=== PATIENT | male | born 1980 | race Two or more races ===

== ENCOUNTER 2020-08-05 10:30 | Outpatient (REF) | payer OTHER, SELFPAY ==
[2020-08-05 11:10] LABS: MANUAL DIFF FLAG NO
[2020-08-05 11:38] LABS: Basophils Percent Auto 0.5 % (0-2); Eosinophils Absolute Auto 0.1 X10*3/uL (0.0-0.4); Eosinophils Percent Auto 1.7 % (0-4); Hematocrit 44.1 % (42-52); Hemoglobin 14.5 g/dl (14.0-18.0); Imm Gran Abs Auto 0.05 X10*3/uL (0.00-0.03); Imm Gran Pct Auto 0.8 % (0.0-0.4); Lymphocytes Absolute Auto 1.8 X10*3/uL (1.2-4.9); Lymphocytes Percent Auto 26.8 % (20-40); Mean Corpuscular HGB Conc 32.9 g/dl (31.0-36.0); Mean Corpuscular Hemoglobin 28.8 pg (27.0-33.0); Mean Corpuscular Volume 87.7 fL (80-98); Monocytes Absolute Auto 0.4 X10*3/uL (0.1-1.2); Monocytes Percent Auto 6.5 % (2-11); Neutrophils Absolute Auto 4.2 X10*3/uL (2.0-8.3); Neutrophils Percent Auto 63.7 % (45-73); Platelet Count 159 X10*3/uL (160-400); Red Blood Count 5.03 X10*6/uL (4.60-5.80); Red Cell Distribution Width 13.3 % (11.0-16.0); White Blood Count 6.6 X10*3/uL (4.8-10.8)
[2020-08-05 11:45] LABS: Glucose Urine UA NEG (NEG); Leukocyte Esterase Urine NEG (NEG); Nitrite Urine NEG (NEG); Specific Gravity - Urine 1.025 (1.005-1.025); Urine Blood NEG (NEG); Urine Ketones NEG (NEG); Urine Protein NEG (NEG-TRACE)
[2020-08-05 11:47] LABS: Appearance Urine CLEAR; Color Urine YELLOW
[2020-08-05 12:16] LABS: TSH reflex Free T4 1.21 uIU/mL (0.32-4.0)
[2020-08-05 12:17] LABS: Alanine Aminotransferase 36 U/L (0-40); Albumin Level 4.7 g/dL (3.5-5.0); Alkaline Phosphatase 40 U/L (39-117); Anion Gap 12 (12-20); Aspartate Amino Transferase 23 U/L (5-37); Bilirubin Total < 0.2 mg/dL (0.0-1.0); Blood Urea Nitrogen 19 mg/dL (9-16); Calcium 9.5 mg/dL (8.4-10.2); Carbon Dioxide 28 mmol/L (22-29); Chloride 104 mmol/L (96-108); Cholesterol 231 mg/dL; Estimated Glomerular Filt Rate > 60; Glucose Fasting 90 mg/dL (60-99); HDL Cholesterol 61 mg/dL; LDL Cholesterol Calculated 153 mg/dl; Potassium 4.7 mmol/L (3.3-5.1); Sodium 139 mmol/L (135-145); Total Protein 7.5 g/dL (6.5-8.0); Triglycerides 85 mg/dL
== END 2020-08-05 10:31 | disposition home or self-care (01) ==
LOC: HO.LAB 10:30
PROVIDERS: PCP Internal Medicine; Visit Provider Internal Medicine
DX: E66.9 Obesity, unspecified (principal); F17.200 Nicotine dependence, unspecified, uncomplicated; Z00.00 Encounter for general adult medical examination without abnormal findings
CPT/HCPCS: 36415; 80053; 80061; 81003; 84443; 85025

== ENCOUNTER 2021-01-10 10:04 | Emergency (ER) | payer OTHER, SELFPAY ==
[2021-01-10 12:13] VITALS: BP 118/79; PULSE 68; RESP 18; TEMP 36.4; O2SAT 99; BMI 33.9
[2021-01-10] MEDS: Lidocaine HCl 1 % MPF 5 ML VIAL SUBCUT (12:30)
--- NOTE | 2021-01-10 13:29 | ED.SKABFB ---
HPI - Skin/Abscess/Foreign Bdy General Chief complaint: Skin/Abscess/Foreign Body Stated complaint: lump on face Time Seen by Provider: 01/10/21 12:16 Source: patient Mode of arrival: ambulatory History of Present Illness HPI narrative: 40-year-old male presenting to the ED complaining of painful lump to left jaw line x6 days. Reports chronic intermittent cyst to area however has never enlarged to this degree. Denies drainage from area, fever, chills complaint: abscess/boil Related Data Home Medications Medication Instructions Recorded Confirmed ibuprofen 600 mg tablet 600 mg PO Q8H PRN 03/15/20 08/25/20 Previous Rx's Medication Instructions Recorded escitalopram oxalate 20 mg tablet 20 mg PO DAILY #30 tab 10/19/20 hydroxyzine pamoate 25 mg capsule 25 mg PO BID PRN #60 cap 10/19/20 trazodone 100 mg tablet 100 mg PO BEDTIME PRN #30 tab 10/19/20 cephalexin 500 mg capsule 500 mg PO QID 7 Days #28 cap 01/10/21 doxycycline hyclate 100 mg tablet 100 mg PO BID 7 Days #14 tab 01/10/21 Allergies Allergy/AdvReac Type Severity Reaction Status Date / Time No Known Allergies Allergy Verified 08/25/20 11:59 [No Known Allergies*] Review of Systems Review of Systems: Constitutional: No Fever, No Chills ENT/Mouth: No Ear Pain, No sore throat, No Swallowing Difficulty Cardiovascular: No Chest Pain, No SOB Respiratory: No Cough Gastrointestinal: No Nausea, No Vomiting, No Abdominal pain Genitourinary: No Dysuria Musculoskeletal: No joint pain, No Myalgias, No Joint Swelling Skin: + Skin Lesions, No rash Neuro: No Weakness, No Numbness, No Paresthesias Yes all other systems are reviewed and are negative [facility] Past Medical History Attestation statement: The following information was validated with the patient. Medical History Anxiety History of substance abuse Insomnia Left shoulder pain Obesity (BMI 30-39.9) Pure hypercholesterolemia Smoker Surgical History No pertinent past surgical history Family History Family History Father No problems noted. Mother No problems noted. Social History Social History Alcohol intake: never Cigarette Packs Per Day: 1 Advance Directives: No Physical Exam Vital Signs: Vital Signs: Last Vital Signs Temp 97.6 F 01/10/21 12:13 Pulse 68 01/10/21 12:13 Resp 18 01/10/21 12:13 BP 118/79 01/10/21 12:13 Pulse Ox 99 01/10/21 12:13 Body Mass Index 33.9 Const: General: cooperative and healthy appearing Orientation/consciousness: patient oriented x3 Limitations: no limitations HENMT: Other: No intraoral swelling/fluctuance appreciated Head: Yes normal to inspection Ears: hearing grossly normal bilaterally General nose exam: Normal external nose present Face and sinus: Yes normal facial exam Mouth: Normal oral and palatal mucosa present and no drooling Throat: Yes posterior oropharynx normal, Yes tonsils normal, Yes uvula midline, No peritonsillar mass and No uvular edema Eyes: General: appearance normal, both eyes and all related structures EOM: EOMs intact bilaterally Neck: Other: + fluctuant abscess noted to left jawline. Pointing. No induration. No overlying cellulitis. No streaking Neck: Yes normal visual inspection and Yes no lymphadenopathy Resp: Effort & Inspection: normal respiratory effort, no stridor and not tachypneic Cardio: Rate: regular rate Heart sounds: S1 normal heart sound present and S2 normal heart sound present Skin: Rashes: no rashes Wounds: no wounds Neuro: General: patient oriented x3 Gait exam (Neuro): Normal gait present Extrem: General: Yes normal to inspection MDM - Skin/Abscess/Foreign Bdy MDM Narrative Medical decision making narrative: 40-year-old male presenting to the ED complaining of painful lump to left jaw line x6 days. Reports chronic intermittent cyst to area however has never enlarged to this degree. On exam VSS, NAD, will I & D abscess Procedures Abscess I/D Site: face Side (if applicable): left Local Anesthetic: lidocaine 1% Amount of anesthesia used (mL): 5 Technique: incised with blade Sent for culture/gram staining?: No Packing used?: none Discharge Plan Discharge Clinical Impression: Abscess Patient Disposition: Home, Self-Care Instructions: Abscess (ED), Abscess Follow-up (ED) Additional Instructions: You had an abscess that was drained today in the emergency department flex and doxycycline or antibiotics, bleed take as prescribed Avoid the sun while on doxycycline and makes you sensitive to the sun, and prone to sunburn If area begins to look infected, is red, has pus drainage, you have fever please return to the ED It is normal for the area to have bloody drainage from the next 48 hours Please follow-up with her doctor in the next 3-5 days for re-evaluation Prescriptions: New cephalexin 500 mg capsule 500 mg PO QID 7 Days Qty: 28 RF: 0 doxycycline hyclate 100 mg tablet 100 mg PO BID 7 Days Qty: 14 RF: 0 No Action trazodone 100 mg tablet 100 mg PO BEDTIME PRN (Reason: for insomnia) Qty: 30 RF: 2 escitalopram oxalate 20 mg tablet 20 mg PO DAILY Qty: 30 RF: 2 hydroxyzine pamoate 25 mg capsule 25 mg PO BID PRN (Reason: for anxiety) Qty: 60 RF: 1 ibuprofen 600 mg tablet 600 mg PO Q8H PRNRF: 0 Referrals: Chema Alexander MD [Primary Care Provider] - 3 days Interventions: ED Discharge Assessment Last Done: 01/10/21 13:41 Discharge Date/Time: 01/10/21 13:42
== END 2021-01-10 13:42 | disposition home or self-care (01) ==
PROVIDERS: Emergency Provider Emergency Medicine; PCP Internal Medicine
DX: L02.01 Cutaneous abscess of face (principal); F17.210 Nicotine dependence, cigarettes, uncomplicated
CPT/HCPCS: 10060; 99283; 99284

== ENCOUNTER 2022-05-04 14:10 | Outpatient (REF) | payer OTHER, SELFPAY ==
[2022-05-04 14:27] LABS: MANUAL DIFF FLAG NO
[2022-05-04 15:00] LABS: Basophils Percent Auto 0.4 % (0-2); Eosinophils Absolute Auto 0.1 X10*3/uL (0.0-0.4); Eosinophils Percent Auto 1.4 % (0-4); Imm Gran Abs Auto 0.05 X10*3/uL (0.00-0.03); Imm Gran Pct Auto 0.7 % (0.0-0.4); Lymphocytes Absolute Auto 1.8 X10*3/uL (1.2-4.9); Lymphocytes Percent Auto 24.4 % (20-40); Mean Corpuscular HGB Conc 34.9 g/dl (31.0-36.0); Mean Corpuscular Hemoglobin 29.8 pg (27.0-33.0); Mean Corpuscular Volume 85.5 fL (80.0-98.0); Mean Platelet Volume 10.6 fL (9.4-12.4); Monocytes Absolute Auto 0.4 X10*3/uL (0.1-1.2); Monocytes Percent Auto 5.2 % (2-11); Neutrophils Percent Auto 67.9 % (45-73); Platelet Count 205 X10*3/uL (160-400); Red Blood Count 5.03 X10*6/uL (4.60-5.80); Red Cell Distribution Width 13.3 % (11.0-16.0); White Blood Count 7.3 X10*3/uL (4.8-10.8)
[2022-05-04 15:02] LABS: Appearance Urine Clear; Color Urine Dark Yellow; Glucose Urine UA Negative (Negative); Leukocyte Esterase Urine Negative (Negative); Nitrite Urine Negative (Negative); Specific Gravity - Urine 1.025 (1.005-1.025); UMIC TRIGGER UACC YES; Urine Blood Negative (Negative); Urine Ketones Trace mg/dL (Negative); Urine Protein 30 (1+) mg/dL (Neg-Trace)
[2022-05-04 15:08] LABS: Bacteria Urine None Seen (None Seen); RBC Urine 0-2 /HPF (0-2); Squamous Epithelial Cell Urine 0-2 /HPF (0-2); WBC Urine 0-5 /HPF (0-5)
[2022-05-04 15:37] LABS: Alanine Aminotransferase 28 U/L (0-40); Albumin Level 4.4 g/dL (3.5-5.0); Alkaline Phosphatase 64 U/L (39-117); Anion Gap 13 (12-20); Aspartate Amino Transferase 31 U/L (5-37); Bilirubin Total 1.2 mg/dL (0.0-1.0); Blood Urea Nitrogen 12 mg/dL (9-16); Calcium 9.7 mg/dL (8.4-10.2); Carbon Dioxide 25 mmol/L (22-29); Chloride 106 mmol/L (96-108); Cholesterol 231 mg/dL; Estimated Glomerular Filt Rate > 60; Glucose Fasting 96 mg/dL (60-99); HDL Cholesterol 58 mg/dL; LDL Cholesterol Calculated 133 mg/dl; Potassium 4.2 mmol/L (3.3-5.1); Sodium 140 mmol/L (135-145); Total Protein 7.6 g/dL (6.5-8.0); Triglycerides 203 mg/dL
[2022-05-04 15:44] LABS: Digoxin < 0.2 ng/mL (0.8-2.0)
[2022-05-04 15:54] LABS: TSH reflex Free T4 1.95 uIU/mL (0.32-4.0); Vitamin D 25-OH Total 14.4 ng/mL (>30)
[2022-05-04 16:05] LABS: Vitamin B12 1056 pg/mL (200-900)
[2022-05-04 18:37] LABS: B Type Natriuretic Peptide 181 pg/mL (<100)
== END 2022-05-04 14:11 | disposition home or self-care (01) ==
LOC: HO.LAB 14:10
PROVIDERS: PCP Internal Medicine; Visit Provider Internal Medicine
DX: I11.0 Hypertensive heart disease with heart failure (principal); I50.20 Unspecified systolic (congestive) heart failure; E53.8 Deficiency of other specified B group vitamins; E78.00 Pure hypercholesterolemia, unspecified; E55.9 Vitamin D deficiency, unspecified
CPT/HCPCS: 36415; 80053; 80061; 80162; 81001; 81003; 82306; 82607; 82746; 83880; 84443; 85025

== ENCOUNTER 2022-06-20 12:52 | Outpatient (REF) | payer OTHER, SELFPAY ==
[2022-06-20 13:34] LABS: Appearance Urine Clear; Color Urine Yellow; Glucose Urine UA Negative (Negative); Leukocyte Esterase Urine Negative (Negative); Nitrite Urine Negative (Negative); Urine Blood Negative (Negative); Urine Ketones Negative (Negative); Urine Protein Trace mg/dL (Neg-Trace)
== END 2022-06-20 12:53 | disposition home or self-care (01) ==
LOC: HO.LAB 12:52
PROVIDERS: PCP Internal Medicine; Visit Provider Physician Assistant
DX: R30.0 Dysuria (principal); I48.91 Unspecified atrial fibrillation
CPT/HCPCS: 81003

== ENCOUNTER 2022-12-03 17:18 | Outpatient (AMB) | payer OTHER, SELFPAY ==
[2022-12-03 17:19] VITALS: BP 124/80; PULSE 69; O2SAT 97; BMI 35.6
--- NOTE | 2022-12-03 17:19 | MHC.PC.OV ---
Vital Signs 12/03/22 17:19 Height 5 ft 6 in Weight 220 lb 6 oz BMI 35.6 BP 124/80 Blood Pressure Location Lt brachial Position Sitting Pulse 69 Pulse Source Pulse Oximeter Pulse Oximetry (%) 97 Oxygen Delivery Method Room Air Intake Visit Reasons: disability Vp Software Required: No Accompanied by: Self / Same As Patient Allergies No Known Allergies [No Known Allergies*] Allergy (Verified 12/03/22 18:16) Medication List - Last Reconciled 12/03/22 by Chema Alexander MD apixaban (Eliquis) 5 mg PO BID 30 days digoxin 125 mcg PO DAILY 90 days folic acid 1 mg PO DAILY 90 days hydroxyzine pamoate 25 mg PO BID PRN metoprolol tartrate 12.5 mg (1/2 x 25 mg) PO BID 90 days nicotine 1 patch topical DAILY Tobacco use date assessed: 12/03/22 Dental Screening Dental Screen Date: 12/03/22 Did you have a dental visit in the last 12 months?: No Did you have a dental problem in the last 6 months where you did not have access to dental care?: No Was dental information given to patient?: No HPI disability HPI Details Patient comes in today mainly to get help in getting his Medical Source Statement completed so he can continue to receive disability benefits from social security States that he has been out of work since he was diagnosed with heart disease / cardiomyopathy back in January 2022 Relates that he is still experiencing easy fatigability and increased SOB even with minimal exertion due to his heart condition Has also been experiencing increased anxiety for the past several months and that he gets near panic attack at times - is wondering if he is on any Rx that helps with his anxiety at present He denies any headaches or dizziness Denies any chest pains although he does experience some chest pressure with increased exertion at times and in association with his exertional SOB No nausea/vomiting, no abdominal pain No change in bowel habits noted Patient unfortunately continues to drink alcohol often as he has a strong smell of alcohol (beer) on his at this time and he admits that he drinks at times to help with his anxiety [facility] Medical History Alcoholic cardiomyopathy Anxiety Atrial fibrillation History of substance abuse Insomnia Left shoulder pain Obesity (BMI 30-39.9) Overweight (BMI 25.0-29.9) Pure hypercholesterolemia Smoker Thrombus of left atrial appendage Surgical History No pertinent past surgical history Family History Father No problems noted. Mother No problems noted. Social History Housing: Condominium Alcohol intake: current Alcohol intake frequency: a few times a week Patient Tobacco Use Status: Current everyday Tobacco user Cigarettes Per Day: 5 e-Cigarette/Vaping Use: Never Used Second Hand Smoke Exposure: Yes Current occupational status: employed Cognitive needs: No Hearing needs: No Vision needs: No Questionnaire PHQ-9 Over the last 2 weeks, how often have you been bothered by any of the following problems? 1. Little interest or pleasure in doing things: nearly every day 2. Feeling down, depressed, or hopeless: nearly every day 3. Trouble falling or staying asleep, or sleeping too much: several days 4. Feeling tired or having little energy: nearly every day 5. Poor appetite or overeating: several days 6. Feeling bad about yourself - or that you are a failure or have let yourself or your family down: nearly every day 7. Trouble concentrating on things, such as reading the newspaper or watching television: not at all 8. Moving or speaking so slowly that other people could have noticed. Or the opposite - being so fidgety or restless that you have been moving around a lot more than usual: several days 9. Thoughts that you would be better off or of hurting yourself in some way: not at all Total score: 15 Depression Screening Interpretation: Positive Depression Screening Follow-up: Existing condition, Community Mental Health Worker F/U and Follow-up Visit Requested [id number] - PHQ-9 Billing: Yes Source: Developed by Drs. Tenzin Noel, Mary Kay, Jomar Esposito and colleagues, with an educational yared from [employer]. Thrive Questionnaire Date Thrive assessed: 12/03/22 I am a: Patient What is your living situation today?: I have a steady place to live Within the past 12 months, did the food you bought not last and you didn't have the money to get more?: Never true Within the past 12 months, did you worry whether your food would run out before you got money to buy more?: Never true Do you have trouble paying for medicines?: No Do you have trouble getting transportation to medical appointments?: No Do you have trouble paying your heating and electricity bill?: No Do you have trouble taking care of your child, family member or friend?: No Do you have trouble with day-to-day activities such as bathing, preparing meals, shopping, managing finances, etc.?: No Are you currently unemployed and looking for a job?: No Are you interested in more education?: No Currently or been in a relationship where the following occur: no concerns reported AUDIT C Alcohol Use Questionnaire (AUDIT-C) 1. How often do you have a drink containing alcohol?: Monthly or less 2. How many drinks containing alcohol do you have on a typical day when you are drinking?: 1 or 2 3. How often do you have six or more drinks on one occasion?: Never Total Score: 1 Score Reviewed/Action Taken: Yes CALLIE-7 AMB Questionnaire CALLIE-7 Date CALLIE - 7 assessed: 12/03/22 Feeling nervous, anxious, or on edge: 0 = Not at all Not being able to stop or control worryin = Not at all Worrying too much about different things: 0 = Not at all Trouble relaxin = Not at all Being so restless that it is hard to sit still: 0 = Not at all Becoming easily annoyed or irritable: 0 = Not at all Feeling afraid as if something awful might happen: 0 = Not at all Total CALLIE-7 score (0-4 normal; 5-9 mild; 10-14 moderate; 15-21 severe): 0 Source: Developed by Drs. Tenzin Noel, Mary Kay, Jomar Esposito and colleagues, with an educational yared from [employer]. Review of Systems Const Reports difficulty sleeping, Reports fatigue, Denies fever(s), Denies headache(s) and Reports lethargy ENT Denies dysphagia, Denies dizziness, Denies headache(s) and Denies sore throat Card Denies chest pain (but relates (+) chest pressure with activity at times), Denies palpitations and Reports dyspnea on exertion Resp Denies cough, Reports dyspnea on exertion and Denies wheezing GI Denies abdominal pain, Denies constipation, Denies dysphagia, Denies heartburn, Denies diarrhea, Denies nausea and Denies vomiting Denies dysuria, Denies nocturia and Denies urinary frequency Musc Reports back pain (on and off), Denies myalgias and Reports muscle weakness (overall) Neuro Denies dizziness and Denies headache(s) Psych Reports anxiety (increased), Reports panic attacks and Denies suicidal ideation Endo Reports fatigue and Denies palpitations Aller/Immun Denies wheezing Physical exam (Primary Care) Vital Signs: Last Vital Signs Pulse 69 12/03/22 17:19 BP 124/80 12/03/22 17:19 Pulse Ox 97 12/03/22 17:19 Oxygen Delivery Method Room Air 12/03/22 17:19 BMI result Body Mass Index 35.6 Tobacco/Smoking Status: Tobacco use Status Tobacco use date assessed 12/03/22 12/03/22 17:28 Patient Tobacco Use Status Current everyday Tobacco 12/03/22 17:28 e-Cigarette/Vaping Use Never Used 12/03/22 17:28 PHQ-9: PHQ-9 Score PHQ-9: Total score 15 12/03/22 17:28 Depression Screening Interpretation: Positive Depression Screening Follow-up: Existing condition, Community Mental Health Worker F/U and Follow-up Visit Requested Thrive Assessment: Date of Thrive Assessment Date Thrive assessed 12/03/22 12/03/22 17:28 Currently or been in a relationship where the following occur: no concerns reported Const General: no acute distress and alert HENMT Throat: Yes posterior oropharynx normal and Yes tonsils normal (no TP congestion) Neck Neck: Yes no lymphadenopathy and Yes supple Resp Auscultation: clear to auscultation bilaterally, no rales and no wheezes Cardio Rate: regular rate Rhythm: abnormal rhythm irregularly irregular Heart sounds: no murmurs GI Palpation (GI): Soft to palpation and nontender Extrem General: No clubbing, No cyanosis and Yes pedal edema (1+ bilateral) Assessment and Plan Assessment & Plan (1) Alcoholic cardiomyopathy: Code(s): I42.6 - Alcoholic cardiomyopathy Plan: Echocardiogram done last year (2021) revealed (+) severe cardiomyopathy with EF of 15-25% Continue Digoxin 0.125 mg QD Continue Thiamine 100 mg QD and Pyridoxine 50 mg QD Will likely need stress testing once his acute issues are stabilized Patient unfortunately continues to drink as he smells strongly of alcohol during his visit today - admitted to drinking before coming in for his appointment Is advised that alcohol is what brought on his cardiomyopathy in the first place and he really should NOT be drinking any alcohol anymore at this time Offered to refer him to AA or addiction counseling but he declined His Medical Source Statement is filled out and completed during his visit today and they will be fax[facility] to [facility] at as requested to help him continue to receive disability benefits from social security at this time (2) Atrial fibrillation: Code(s): I48.91 - Unspecified atrial fibrillation Qualifiers: Atrial fibrillation type: persistent (not longstanding) Qualified Code(s): I48.19 - Other persistent atrial fibrillation Plan: Patient currently remains rate-controlled Continue Digoxin 125 mcg QD and Metoprolol 12.5 mg BID for rate control and Eliquis 5 mg BID for thromboembolism prophylaxis Was originally scheduled for cardioversion but MONIQUE revealed the presence of a left atrial appendage thrombus so cardioversion was canceled He eventually underwent MONIQUE with cardioversion in June 2022 but apparently failed cardioversion as he remained in AF when he was seen by cardiology for follow up in July 2022 He was referred for EP studies and consideration for ablation and advised to follow up with cardiology again in 4 weeks but it is unclear at this time whether patient followed through with any of these recommendations as we have not received any further correspondence from cardiology since Patient is a very poor historian and us unable to provide any helpful or reliable information at this time Will try to contact [facility] and see if we can get any further information sent over [facility] for review (3) Thrombus of left atrial appendage: Code(s): I51.3 - Intracardiac thrombosis, not elsewhere classified Plan: MONIQUE done last year revealed the presence of a left atrial appendage thrombus, which led to the cancellation of his scheduled cardioversion Patient eventually underwent repeat MONIQUE and cardioversion in July 2022 and appears to have failed cardioversion Follow-up with cardiology as scheduled (4) Pure hypercholesterolemia: Code(s): E78.00 - Pure hypercholesterolemia, unspecified Plan: Reinforced low cholesterol diet Advised that given his current issues, will benefit from significant cholesterol-reduction - his LDL cholesterol was at 133 back in April 2022 Had patient recheck his labs and fasting lipids for follow up a few months ago but he did not get any of his follow up labs done Have also considered starting him right away on statins but with his continuing drinking issue(s), may not be the best thing to do at this time until he has some labs done for further evaluation/follow up (5) Anxiety: Code(s): F41.9 - Anxiety disorder, unspecified Plan: Continue Hydroxyzine 25 mg BID PRN for anxiety - Rx refilled Will consider starting him on some maintenance Rx for his anxiety when he returns for his follow up visit in a couple of weeks (6) Smoker: Code(s): F17.200 - Nicotine dependence, unspecified, uncomplicated Plan: Counseled again to continue attempts at smokng cessation (7) Obesity (BMI 30-39.9): Code(s): E66.9 - Obesity, unspecified Plan: Patient has gained a lot of weight recently Reinforced diet/weight loss; exercise is unrealistic at this time given patient's current comorbidities Plan Follow up as scheduled in 2 weeks Medications: Refilled hydroxyzine pamoate 25 mg PO BID PRN 60 caps 3RF for anxiety F41.9 - Anxiety disorder, unspecified Coding Level of Care Code Est Pt Level 4 (66853) Diagnoses Alcoholic cardiomyopathy I42.6 Atrial fibrillation I48.19 Atrial fibrillation type: persistent (not longstanding) Thrombus of left atrial appendage I51.3 Pure hypercholesterolemia E78.00 Anxiety F41.9 Smoker F17.200 Obesity (BMI 30-39.9) E66.9
== END 2022-12-03 18:08 | disposition home or self-care (01) ==
PROVIDERS: PCP Internal Medicine; Visit Provider Internal Medicine
DX: I48.19 Other persistent atrial fibrillation (principal); I42.6 Alcoholic cardiomyopathy; F41.9 Anxiety disorder, unspecified; F17.200 Nicotine dependence, unspecified, uncomplicated; I51.3 Intracardiac thrombosis, not elsewhere classified; E78.00 Pure hypercholesterolemia, unspecified; E66.9 Obesity, unspecified
CPT/HCPCS: 99214

== ENCOUNTER 2022-12-11 13:17 | Outpatient (REF) | payer OTHER, SELFPAY ==
[2022-12-11 13:38] LABS: MANUAL DIFF FLAG NO
[2022-12-11 14:15] LABS: Basophils Absolute Auto 0.1 X10*3/uL (0.0-0.2); Basophils Percent Auto 0.7 % (0-2); Eosinophils Absolute Auto 0.1 X10*3/uL (0.0-0.4); Eosinophils Percent Auto 1.5 % (0-4); Hematocrit 49.6 % (42.0-52.0); Hemoglobin 16.6 g/dl (14.0-18.0); Imm Gran Abs Auto 0.05 X10*3/uL (0.00-0.03); Imm Gran Pct Auto 0.6 % (0.0-0.4); Lymphocytes Absolute Auto 1.7 X10*3/uL (1.2-4.9); Lymphocytes Percent Auto 20.4 % (20-40); Mean Corpuscular HGB Conc 33.5 g/dl (31.0-36.0); Mean Corpuscular Hemoglobin 30.5 pg (27.0-33.0); Mean Corpuscular Volume 91.2 fL (80.0-98.0); Mean Platelet Volume 10.7 fL (9.4-12.4); Monocytes Absolute Auto 0.7 X10*3/uL (0.1-1.2); Monocytes Percent Auto 8.1 % (2-11); Neutrophils Absolute Auto 5.8 x10*3/uL (2.0-8.3); Neutrophils Percent Auto 68.7 % (45-73); Platelet Count 154 X10*3/uL (160-400); Red Blood Count 5.44 X10*6/uL (4.60-5.80); Red Cell Distribution Width 13.2 % (11.0-16.0); White Blood Count 8.4 X10*3/uL (4.8-10.8)
[2022-12-11 15:10] LABS: B Type Natriuretic Peptide 90 pg/mL (<100)
[2022-12-11 15:21] LABS: Appearance Urine Clear; Color Urine Dark Yellow; Glucose Urine UA Negative (Negative); Leukocyte Esterase Urine Small (1+) (Negative); Nitrite Urine Negative (Negative); UMIC TRIGGER UACC YES; Urine Blood Negative (Negative); Urine Ketones Trace mg/dL (Negative); Urine Protein 30 (1+) mg/dL (Neg-Trace)
[2022-12-11 15:55] LABS: Alanine Aminotransferase 96 U/L (0-40); Albumin Level 4.6 g/dL (3.5-5.0); Alkaline Phosphatase 60 U/L (39-117); Anion Gap 17 (12-20); Aspartate Amino Transferase 79 U/L (5-37); Blood Urea Nitrogen 8 mg/dL (9-16); Calcium 9.9 mg/dL (8.4-10.2); Carbon Dioxide 16 mmol/L (22-29); Chloride 110 mmol/L (96-108); Cholesterol 283 mg/dL; Estimated Glomerular Filt Rate > 60; Glucose Fasting 91 mg/dL (60-99); HDL Cholesterol 69 mg/dL; LDL Cholesterol Calculated 177 mg/dl; Potassium 4.3 mmol/L (3.3-5.1); Sodium 139 mmol/L (135-145); Total Protein 8.7 g/dL (6.5-8.0); Triglycerides 187 mg/dL
[2022-12-11 16:21] LABS: TSH reflex Free T4 1.07 uIU/mL (0.32-4.0); Vitamin D 25-OH Total 29.9 ng/mL (>30)
[2022-12-11 17:07] LABS: Bacteria Urine None Seen (None Seen); RBC Urine 0-2 /HPF (0-2); Squamous Epithelial Cell Urine 0-2 /HPF (0-2); UACC Culture Trigger YES; WBC Urine 0-5 /HPF (0-5)
== END 2022-12-11 13:18 | disposition home or self-care (01) ==
LOC: HO.LAB 13:17
PROVIDERS: PCP Internal Medicine; Visit Provider Internal Medicine
DX: E78.00 Pure hypercholesterolemia, unspecified (principal); R30.0 Dysuria; E55.9 Vitamin D deficiency, unspecified; I11.0 Hypertensive heart disease with heart failure; I50.9 Heart failure, unspecified
CPT/HCPCS: 36415; 80053; 80061; 81001; 82306; 83880; 84443; 85025; 87086

== ENCOUNTER 2022-12-17 16:04 | Outpatient (AMB) | payer OTHER, SELFPAY ==
[2022-12-17 16:05] VITALS: BP 116/84; PULSE 76; O2SAT 96; BMI 35.7
--- NOTE | 2022-12-17 16:05 | A.OFFPC_ITS ---
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 Required: No Accompanied by: Self / Same As Patient Allergies No Known Allergies [No Known Allergies*] Allergy (Verified 12/17/22 16:54) Medication List - Last Reconciled 12/17/22 by Chema Alexander MD apixaban (Eliquis) 5 mg PO BID 30 days digoxin 125 mcg PO DAILY 90 days folic acid 1 mg PO DAILY 90 days hydroxyzine pamoate 25 mg PO BID PRN metoprolol tartrate 12.5 mg (1/2 x 25 mg) PO BID 90 days nicotine 1 patch topical DAILY Tobacco use date assessed: 12/17/22 Dental Screening Dental Screen Date: 12/17/22 Did you have a dental visit in the last 12 months?: No Did you have a dental problem in the last 6 months where you did not have access to dental care?: No Was dental information given to patient?: No HPI cardiomyopathy HPI Details Patient comes in today for his follow up visit States that he still feels tired and fatigued often and is not able to do much in terms of activity Continues to experience POOLE often; denies any chest pains lately States that he was just seen by his customer service cashier and had some type of stress testing done about a month and a half ago - he does not know the results of his test He denies any headaches or dizziness No nausea/vomiting, no abdominal pain No change in bowel habits noted Had his follow up labs done last week - to discuss his results [facility] Medical History Alcoholic cardiomyopathy Anxiety Atrial fibrillation History of substance abuse Insomnia Left shoulder pain Obesity (BMI 30-39.9) Overweight (BMI 25.0-29.9) Pure hypercholesterolemia Smoker Thrombus of left atrial appendage Surgical History No pertinent past surgical history Family History Father No problems noted. Mother No problems noted. Social History Housing: Condominium Alcohol intake: current Alcohol intake frequency: a few times a week Patient Tobacco Use Status: Current everyday Tobacco user Cigarettes Per Day: 5 e-Cigarette/Vaping Use: Never Used Second Hand Smoke Exposure: Yes Current occupational status: employed Cognitive needs: No Hearing needs: No Vision needs: No Questionnaire PHQ-9 Over the last 2 weeks, how often have you been bothered by any of the following problems? 1. Little interest or pleasure in doing things: nearly every day 2. Feeling down, depressed, or hopeless: nearly every day 3. Trouble falling or staying asleep, or sleeping too much: several days 4. Feeling tired or having little energy: nearly every day 5. Poor appetite or overeating: several days 6. Feeling bad about yourself - or that you are a failure or have let yourself or your family down: nearly every day 7. Trouble concentrating on things, such as reading the newspaper or watching television: not at all 8. Moving or speaking so slowly that other people could have noticed. Or the opposite - being so fidgety or restless that you have been moving around a lot more than usual: several days 9. Thoughts that you would be better off or of hurting yourself in some way: not at all Total score: 15 Depression Screening Interpretation: Positive Depression Screening Follow-up: Existing condition, Community Mental Health Worker F/U and Follow-up Visit Requested [id number] - PHQ-9 Billing: Yes Source: Developed by Drs. Tenzin Noel, Mary Kay, oJmar Esposito and colleagues, with an educational yared from [employer]. Thrive Questionnaire Date Thrive assessed: 12/17/22 I am a: Patient What is your living situation today?: I have a steady place to live Within the past 12 months, did the food you bought not last and you didn't have the money to get more?: Never true Within the past 12 months, did you worry whether your food would run out before you got money to buy more?: Never true Do you have trouble paying for medicines?: No Do you have trouble getting transportation to medical appointments?: No Do you have trouble paying your heating and electricity bill?: No Do you have trouble taking care of your child, family member or friend?: No Do you have trouble with day-to-day activities such as bathing, preparing meals, shopping, managing finances, etc.?: No Are you currently unemployed and looking for a job?: No Are you interested in more education?: No Please select the resources that you would like help with: None Currently or been in a relationship where the following occur: no concerns reported AUDIT C Alcohol Use Questionnaire (AUDIT-C) 1. How often do you have a drink containing alcohol?: Monthly or less 2. How many drinks containing alcohol do you have on a typical day when you are drinking?: 1 or 2 3. How often do you have six or more drinks on one occasion?: Never Total Score: 1 Score Reviewed/Action Taken: Yes CALLIE-7 AMB Questionnaire CALLIE-7 Date CALLIE - 7 assessed: 12/17/22 Feeling nervous, anxious, or on edge: 0 = Not at all Not being able to stop or control worryin = Not at all Worrying too much about different things: 0 = Not at all Trouble relaxin = Not at all Being so restless that it is hard to sit still: 0 = Not at all Becoming easily annoyed or irritable: 0 = Not at all Feeling afraid as if something awful might happen: 0 = Not at all Total CALLIE-7 score (0-4 normal; 5-9 mild; 10-14 moderate; 15-21 severe): 0 Source: Developed by Drs. Tenzin Noel, Mary Kay, Jomar Esposito and colleagues, with an educational yared from [employer]. Review of Systems Const Reports difficulty sleeping, Reports fatigue, Denies fever(s), Denies headache(s) and Reports lethargy ENT Denies dysphagia, Denies dizziness, Denies otalgia, Denies headache(s), Denies neck pain and Denies sore throat Card Denies chest pain (but relates (+) chest pressure with activity at times), Denies palpitations and Reports dyspnea on exertion Resp Denies cough, Reports dyspnea on exertion and Denies wheezing GI Denies abdominal pain, Denies constipation, Denies dysphagia, Denies heartburn, Denies diarrhea, Denies nausea and Denies vomiting Denies dysuria, Denies nocturia and Denies urinary frequency Musc Reports back pain (on and off), Denies myalgias, Reports muscle weakness (overall) and Denies neck pain Neuro Denies dizziness and Denies headache(s) Psych Reports anxiety (increased) and Denies suicidal ideation Endo Reports fatigue and Denies palpitations Aller/Immun Denies wheezing Physical exam (Primary Care) Vital Signs: Last Vital Signs Pulse 76 12/17/22 16:05 BP 116/84 12/17/22 16:05 Pulse Ox 96 12/17/22 16:05 Oxygen Delivery Method Room Air 12/17/22 16:05 BMI result Body Mass Index 35.7 Tobacco/Smoking Status: Tobacco use Status Tobacco use date assessed 12/17/22 12/17/22 16:11 Patient Tobacco Use Status Current everyday Tobacco 12/17/22 16:11 e-Cigarette/Vaping Use Never Used 12/17/22 16:11 PHQ-9: PHQ-9 Score PHQ-9: Total score 15 12/17/22 16:11 Depression Screening Interpretation: Positive Depression Screening Follow-up: Existing condition, Community Mental Health Worker F/U and Follow-up Visit Requested Thrive Assessment: Date of Thrive Assessment Date Thrive assessed 12/17/22 12/17/22 16:11 Currently or been in a relationship where the following occur: no concerns reported Const General: no acute distress and alert HENMT Ears: TM's normal bilaterally and EAC's normal Throat: Yes posterior oropharynx normal and Yes tonsils normal (no TP congestion) Neck Neck: Yes no lymphadenopathy and Yes supple Resp Auscultation: clear to auscultation bilaterally, no rales and no wheezes Cardio Rate: regular rate Rhythm: abnormal rhythm irregularly irregular Heart sounds: no murmurs GI Palpation (GI): Soft to palpation and nontender Auscultation: normal bowel sounds Extrem General: No clubbing, No cyanosis and Yes pedal edema (1+ bilaterally) Results Reviewed Results Reviewed: Laboratory Tests 12/11/22 12/11/22 12/11/22 13:22 13:36 13:36 WBC 8.4 Hgb 16.6 Hct 49.6 Plt Count 154 L Sodium 139 Potassium 4.3 Creatinine 0.95 Estimated GFR > 60 Fasting Glucose 91 Calcium 9.9 AST 79 H ALT 96 H Triglycerides 187 Cholesterol 283 LDL Cholesterol, Calc 177 HDL Cholesterol 69 25-OH Vitamin D Total 29.9 TSH 1.07 Ur Specific [place] 1.020 Urine Protein 30 (1+) H Urine Glucose (UA) Negative Urine Blood Negative Assessment and Plan Assessment & Plan (1) Alcoholic cardiomyopathy: Code(s): I42.6 - Alcoholic cardiomyopathy Plan: Echocardiogram done last year (2021) revealed (+) severe cardiomyopathy with EF of 15-25% Continue Digoxin 0.125 mg QD Continue Thiamine 100 mg QD and Pyridoxine 50 mg QD States that he had cardiology follow up and had some form of stress testing done about 1 to 2 months ago - does not know how his results are Patient unfortunately continues to drink as he smells strongly of alcohol again during his visit today - admits that he still drinks often and daily Is advised again that alcohol is what brought on his cardiomyopathy in the first place and he really should NOT be drinking any alcohol anymore at this point Offered again to refer him to AA or addiction counseling but he declined (2) Atrial fibrillation: Code(s): I48.91 - Unspecified atrial fibrillation Qualifiers: Atrial fibrillation type: persistent (not longstanding) Qualified Code(s): I48.19 - Other persistent atrial fibrillation Plan: Patient currently remains rate-controlled Continue Digoxin 125 mcg QD and Metoprolol 12.5 mg BID for rate control and Eliquis 5 mg BID for thromboembolism prophylaxis Was originally scheduled for cardioversion but MONIQUE revealed the presence of a left atrial appendage thrombus so cardioversion was canceled He eventually underwent MONIQUE with cardioversion in June 2022 but failed cardioversion as he remained in AF when he was seen by cardiology for follow up a month later (July 2022) He was referred for EP studies and consideration for ablation and advised to follow up with cardiology again in 4 weeks but it is unclear at this time whether patient followed through with any of these recommendations as we have not received any further correspondence from cardiology since Patient is a very poor historian and us unable to provide any helpful/reliable information He did indicate seeing his customer service cashier about a month and a half ago and had some type of cardiac testing done - will try reaching out to [facility] to obtain more information on this RAGHU (3) Thrombus of left atrial appendage: Code(s): I51.3 - Intracardiac thrombosis, not elsewhere classified Plan: MONIQUE done last year revealed the presence of a left atrial appendage thrombus, which led to the cancellation of his scheduled cardioversion Patient eventually underwent repeat MONIQUE and cardioversion in July 2022 and appears to have failed cardioversion Follow-up with cardiology as scheduled (4) Pure hypercholesterolemia: Code(s): E78.00 - Pure hypercholesterolemia, unspecified Plan: Results of his labs done last week reviewed and discussed with patient - advised that his cholesterol numbers have increased further from previous and his LDL cholesterol is now at 177 mg/dl Reinforced low cholesterol diet Advised that given his current issues, will benefit from significant cholesterol-reduction BUT we cannot start him on statins due to his currently elevated LFTs and continued alcohol use Will try sending a copy of his recent lab results to his customer service cashier and they may consider trying him on the newer PCSK9 inhibitors for his high cholesterol if appropriate Will have patient recheck his labs in 3 months for follow up (5) Elevated LFTs: Code(s): R79.89 - Other specified abnormal findings of blood chemistry Plan: Advised that his LFTs are elevated on his recent labs, most likely due to his continuing alcohol intake Have emphasized to patient that he needs to quit drinking completely in light of all of his current issues, and that we are not able to start him on Tx for his high cholesterol at this time due to the aforementioned situation Will have him recheck his labs in 3 months for follow up (6) Anxiety: Code(s): F41.9 - Anxiety disorder, unspecified Plan: Continue Hydroxyzine 25 mg BID PRN for anxiety Will consider starting him on some maintenance Rx for his anxiety if his anxiety continues to increase (7) Smoker: Code(s): F17.200 - Nicotine dependence, unspecified, uncomplicated Plan: Counseled again to continue attempts at smokng cessation (8) Obesity (BMI 30-39.9): Code(s): E66.9 - Obesity, unspecified Plan: Patient has gained a lot of weight recently Reinforced diet/weight loss; exercise is unrealistic at this time given patient's current comorbidities Plan Follow up in 3 months Orders: Orders Comprehensive [place]. Panel Fast 3 Months E78.00 - Pure hypercholesterolemia, unspecified Lipid Panel 3 Months E78.00 - Pure hypercholesterolemia, unspecified B Type Natriuretic Peptide 3 Months I50.9 - Heart failure, unspecified Coding Level of Care Code Est Pt Level 4 (76521) Diagnoses Alcoholic cardiomyopathy I42.6 Atrial fibrillation I48.19 Atrial fibrillation type: persistent (not longstanding) Thrombus of left atrial appendage I51.3 Pure hypercholesterolemia E78.00 Elevated LFTs R79.89 Anxiety F41.9 Smoker F17.200 Obesity (BMI 30-39.9) E66.9
== END 2022-12-17 16:56 | disposition home or self-care (01) ==
PROVIDERS: PCP Internal Medicine; Visit Provider Internal Medicine
DX: I48.19 Other persistent atrial fibrillation (principal); I42.6 Alcoholic cardiomyopathy; E66.9 Obesity, unspecified; Z68.35 Body mass index [BMI] 35.0-35.9, adult; F41.9 Anxiety disorder, unspecified; F17.200 Nicotine dependence, unspecified, uncomplicated; I51.3 Intracardiac thrombosis, not elsewhere classified; E78.00 Pure hypercholesterolemia, unspecified; R79.89 Other specified abnormal findings of blood chemistry
CPT/HCPCS: 99214

== ENCOUNTER 2023-03-26 15:10 | Outpatient (AMB) | payer OTHER, SELFPAY ==
[2023-03-26 15:12] VITALS: BP 130/82; PULSE 98; O2SAT 97; BMI 34.9
--- NOTE | 2023-03-26 15:12 | A.OFFPC_ITS ---
Vital Signs 03/26/23 15:12 Height 5 ft 6 in Weight 216 lb 6 oz BMI 34.9 BP 130/82 Blood Pressure Location Lt brachial Position Sitting Pulse 98 Pulse Source Pulse Oximeter Pulse Oximetry (%) 97 Oxygen Delivery Method Room Air Intake Visit Reasons: CHF/cardiomyopathy. 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 Required: No Accompanied by: Self / Same As Patient Allergies No Known Allergies [No Known Allergies*] Allergy (Verified 07/05/23 16:41) Medication List - Last Reconciled 03/26/23 by Chema Alexander MD apixaban (Eliquis) 5 mg PO BID 30 days digoxin 125 mcg PO DAILY 90 days folic acid 1 mg PO DAILY 90 days hydroxyzine pamoate 25 mg PO BID PRN metoprolol succinate ER 50 mg PO DAILY nicotine 1 patch topical DAILY Tobacco use date assessed: 03/26/23 Dental Screening Dental Screen Date: 03/26/23 Did you have a dental visit in the last 12 months?: Yes Did you have a dental problem in the last 6 months where you did not have access to dental care?: No Was dental information given to patient?: Patient has dentist HPI CHF/cardiomyopathy. hyperlipidemia, elevated LFTs HPI Details Patient comes in today for his follow up visit States that he currently feels okay and is scheduled for a cardiac ablation at [facility] next month on 05/01/2023 He denies any headaches or dizziness Denies any chest pains but still has POOLE; states that he does okay as long as he does things at his own pace No nausea/vomiting, no abdominal pain No change in bowel habits noted Was not able to get his follow up labs done prior to his visit today Needs a couple of his Rx refilled States that his Metoprolol ER was also increased to 2 tablets (of 25 mg) QD and he would like to see if we can change it to a 50 mg tablet that he can just take it at 1 tablet a day for convenience [facility] Medical History Overweight (BMI 25.0-29.9) Thrombus of left atrial appendage Alcoholic cardiomyopathy Atrial fibrillation Pure hypercholesterolemia History of substance abuse Obesity (BMI 30-39.9) Left shoulder pain Insomnia Smoker Anxiety Surgical History No pertinent past surgical history Family History Father No problems noted. Mother No problems noted. Social History Housing: Condominium Alcohol intake: current Alcohol intake frequency: a few times a week Patient Tobacco Use Status: Former Tobacco user Quit Date: 05/20/23 Tobacco use type: Cigarette e-Cigarette/Vaping Use: Never Used Second Hand Smoke Exposure: Yes Current occupational status: employed Cognitive needs: No Hearing needs: No Vision needs: No Questionnaire PHQ-9 Over the last 2 weeks, how often have you been bothered by any of the following problems? 1. Little interest or pleasure in doing things: nearly every day 2. Feeling down, depressed, or hopeless: nearly every day 3. Trouble falling or staying asleep, or sleeping too much: several days 4. Feeling tired or having little energy: nearly every day 5. Poor appetite or overeating: several days 6. Feeling bad about yourself - or that you are a failure or have let yourself or your family down: nearly every day 7. Trouble concentrating on things, such as reading the newspaper or watching television: not at all 8. Moving or speaking so slowly that other people could have noticed. Or the opposite - being so fidgety or restless that you have been moving around a lot more than usual: several days 9. Thoughts that you would be better off or of hurting yourself in some way: not at all Total score: 15 Depression Screening Interpretation: Positive Depression Screening Follow-up: Existing condition, Community Mental Health Worker F/U and Follow-up Visit Requested Depression Screening Done: Yes 26140 - PHQ-9 Billing: Yes Source: Developed by Drs. Tenzin Noel, Mary Kay, Jomar Esposito and colleagues, with an educational yared from [employer]. Thrive Questionnaire Date Thrive assessed: 03/26/23 I am a: Patient What is your living situation today?: I have a steady place to live Within the past 12 months, did the food you bought not last and you didn't have the money to get more?: Never true Within the past 12 months, did you worry whether your food would run out before you got money to buy more?: Never true Do you have trouble paying for medicines?: No Do you have trouble getting transportation to medical appointments?: No Do you have trouble paying your heating and electricity bill?: No Do you have trouble taking care of your child, family member or friend?: No Do you have trouble with day-to-day activities such as bathing, preparing meals, shopping, managing finances, etc.?: No Are you currently unemployed and looking for a job?: No Are you interested in more education?: No Please select the resources that you would like help with: None Currently or been in a relationship where the following occur: no concerns reported AUDIT C Alcohol Use Questionnaire (AUDIT-C) 1. How often do you have a drink containing alcohol?: Monthly or less 2. How many drinks containing alcohol do you have on a typical day when you are drinking?: 1 or 2 3. How often do you have six or more drinks on one occasion?: Never Total Score: 1 Score Reviewed/Action Taken: Yes CALLIE-7 AMB Questionnaire CALLIE-7 Date CALLIE - 7 assessed: 03/26/23 Feeling nervous, anxious, or on edge: 0 = Not at all Not being able to stop or control worryin = Not at all Worrying too much about different things: 0 = Not at all Trouble relaxin = Not at all Being so restless that it is hard to sit still: 0 = Not at all Becoming easily annoyed or irritable: 0 = Not at all Feeling afraid as if something awful might happen: 0 = Not at all Total CALLIE-7 score (0-4 normal; 5-9 mild; 10-14 moderate; 15-21 severe): 0 Source: Developed by Drs. Tenzin Noel, Mary Kay, Jomar Esposito and colleagues, with an educational yared from [employer]. Review of Systems Const Reports difficulty sleeping, Reports fatigue, Denies fever(s), Denies headache(s) and Reports lethargy ENT Denies dysphagia, Denies dizziness, Denies otalgia, Denies headache(s), Denies neck pain and Denies sore throat Card Denies chest pain (but relates (+) chest pressure with activity at times), Denies palpitations and Reports dyspnea on exertion Resp Denies cough, Reports dyspnea on exertion and Denies wheezing GI Denies abdominal pain, Denies constipation, Denies dysphagia, Denies heartburn, Denies diarrhea, Denies nausea and Denies vomiting Denies dysuria, Denies nocturia and Denies urinary frequency Musc Reports back pain (on and off), Denies myalgias, Reports muscle weakness (overall) and Denies neck pain Neuro Denies dizziness and Denies headache(s) Psych Reports anxiety (increased) and Denies suicidal ideation Endo Reports fatigue and Denies palpitations Aller/Immun Denies wheezing Physical exam (Primary Care) Vital Signs: Last Vital Signs Pulse 98 03/26/23 15:12 BP 130/82 03/26/23 15:12 Pulse Ox 97 03/26/23 15:12 Oxygen Delivery Method Room Air 03/26/23 15:12 BMI result Body Mass Index 34.9 Tobacco/Smoking Status: Tobacco use Status Tobacco use date assessed 03/26/23 03/26/23 15:14 Patient Tobacco Use Status Current everyday Tobacco 03/26/23 15:14 e-Cigarette/Vaping Use Never Used 03/26/23 15:14 PHQ-9: PHQ-9 Score PHQ-9: Total score 15 03/26/23 15:49 Depression Screening Interpretation: Positive Depression Screening Follow-up: Existing condition, Community Mental Health Worker F/U and Follow-up Visit Requested Thrive Assessment: Date of Thrive Assessment Date Thrive assessed 03/26/23 03/26/23 15:14 Currently or been in a relationship where the following occur: no concerns reported Const General: no acute distress and alert HENMT Ears: TM's normal bilaterally and EAC's normal Throat: Yes posterior oropharynx normal and Yes tonsils normal (no TP congestion) Neck Neck: Yes no lymphadenopathy and Yes supple Resp Auscultation: clear to auscultation bilaterally, no rales and no wheezes Cardio Rate: regular rate Rhythm: abnormal rhythm irregularly irregular Heart sounds: no murmurs GI Palpation (GI): Soft to palpation and nontender Auscultation: normal bowel sounds Extrem General: No clubbing, No cyanosis and Yes pedal edema (1+ bilaterally) Assessment and Plan Assessment & Plan (1) Alcoholic cardiomyopathy: Code(s): I42.6 - Alcoholic cardiomyopathy Plan: Echocardiogram done last year (in 2021) revealed (+) severe cardiomyopathy with EF of 15-25% Nuclear stress testing in October 2022 revealed normal perfusion, no ischemia and EF of 62% HFrEF was likely tachycardia-mediated at the time Patient is again advised to completely abstain from alcohol (stop drinking completely) Continue Digoxin 0.125 mg QD, Eliquis 5 mg BID for thromboembolism prophylaxis and Metoprolol ER 50 mg QD (per request, Rx changed from 25 mg x 2 tabs QD to 50 mg x 1 tab QD) (2) Atrial fibrillation: Code(s): I48.91 - Unspecified atrial fibrillation Qualifiers: Atrial fibrillation type: persistent (not longstanding) Qualified Code(s): I48.19 - Other persistent atrial fibrillation Plan: Patient currently remains rate-controlled Continue Digoxin 125 mcg QD and Metoprolol 50 mg QD for rate control and Eliquis 5 mg BID for thromboembolism prophylaxis Was originally scheduled for cardioversion but MONIQUE revealed the presence of a left atrial appendage thrombus so cardioversion was canceled He eventually underwent MONIQUE with cardioversion in June 2022 but failed cardioversion as he remained in AF when he was seen by cardiology for follow up a month later (July 2022) He was then referred for EP studies and is now scheduled for a cardiac ablation at [facility] next month on 05/01/2023 Follow up with [facility] as scheduled (3) Thrombus of left atrial appendage: Code(s): I51.3 - Intracardiac thrombosis, not elsewhere classified Plan: MONIQUE done last year revealed the presence of a left atrial appendage thrombus, which led to the cancellation of his scheduled cardioversion Patient eventually underwent repeat MONIQUE and cardioversion in July 2022 and failed cardioversion Continue Eliquis 5 mg BID Follow-up with cardiology as scheduled (4) Pure hypercholesterolemia: Code(s): E78.00 - Pure hypercholesterolemia, unspecified Plan: Reinforced low cholesterol diet Patient was not able to get his follow up labs done prior to his appt today and he is advised to get them done RAGHU He is reminded that his cholesterol numbers have increased further from previous when they were last checked a few months ago and his LDL cholesterol was at 177 mg/dl at the time He was advised back then that given his multiple issues, he will benefit from significant cholesterol-reduction BUT we cannot start him on statins at the time due to his elevated LFTs and continued alcohol use We will see how his numbers are when he gets his labs done and start him on the appropriate Rx if necessary and if safe to do so Will have patient recheck his labs and fasting lipids in 3 months for follow up (5) Elevated LFTs: Code(s): R79.89 - Other specified abnormal findings of blood chemistry Plan: Advised that his LFTs were elevated on his recent labs, most likely due to his continuing alcohol intake Have emphasized to patient that he needs to quit drinking completely in light of all of his current issues, and that we were not able to start him on Tx for his high cholesterol at the time due to the aforementioned situation Will have him get his follow up labs done RAGHU for follow up (6) Anxiety: Code(s): F41.9 - Anxiety disorder, unspecified Plan: Continue Hydroxyzine 25 mg BID PRN for anxiety Will consider starting him on some maintenance Rx for his anxiety if his anxiety continues to increase (7) Smoker: Code(s): F17.200 - Nicotine dependence, unspecified, uncomplicated Plan: Counseled again to continue attempts at smokng cessation (8) Obesity (BMI 30-39.9): Code(s): E66.9 - Obesity, unspecified Plan: Patient has gained a lot of weight recently Reinforced diet/weight loss; exercise is unrealistic at this time given patient's current comorbidities Plan Follow up in 3 months Orders: Orders Comprehensive [place]. Panel Fast 3 Months E78.00 - Pure hypercholesterolemia, unspecified Complete Blood Count Auto Diff 3 Months I10 - Essential (primary) hypertension Lipid Panel 3 Months E78.00 - Pure hypercholesterolemia, unspecified TSH reflex Free T4 3 Months E78.00 - Pure hypercholesterolemia, unspecified UA CC w/rflx Micro + Cult 3 Months R30.0 - Dysuria Vitamin D 25-OH Total 3 Months E55.9 - Vitamin D deficiency, unspecified Medications: New metoprolol succinate ER 50 mg PO DAILY 90 tabs 1RF 90 days Refilled hydroxyzine pamoate 25 mg PO BID PRN 60 caps 3RF for anxiety F41.9 - Anxiety disorder, unspecified folic acid 1 mg PO DAILY 90 tabs 3RF 90 days Coding Level of Care Code Est Pt Level 4 (53981) Diagnoses Alcoholic cardiomyopathy I42.6 Persistent atrial fibrillation I48.19 Atrial fibrillation type: persistent (not longstanding) Thrombus of left atrial appendage I51.3 Pure hypercholesterolemia E78.00 Elevated LFTs R79.89 Anxiety F41.9 Smoker F17.200 Obesity (BMI 30-39.9) E66.9
== END 2023-03-26 16:01 | disposition home or self-care (01) ==
PROVIDERS: PCP Internal Medicine; Visit Provider Internal Medicine
DX: I42.6 Alcoholic cardiomyopathy (principal); I48.19 Other persistent atrial fibrillation; I51.3 Intracardiac thrombosis, not elsewhere classified; E78.00 Pure hypercholesterolemia, unspecified; R79.89 Other specified abnormal findings of blood chemistry; F41.9 Anxiety disorder, unspecified; F17.200 Nicotine dependence, unspecified, uncomplicated; E66.9 Obesity, unspecified
CPT/HCPCS: 99214

== ENCOUNTER 2023-04-08 08:57 | Outpatient (REF) | payer OTHER, SELFPAY ==
[2023-04-08 10:10] LABS: B Type Natriuretic Peptide 67 pg/mL (<100)
[2023-04-08 10:18] LABS: Alanine Aminotransferase 31 U/L (0-40); Albumin Level 4.6 g/dL (3.5-5.0); Alkaline Phosphatase 46 U/L (39-117); Anion Gap 14 (12-20); Aspartate Amino Transferase 25 U/L (5-37); Bilirubin Total 0.7 mg/dL (0.0-1.0); Blood Urea Nitrogen 15 mg/dL (9-16); Calcium 9.9 mg/dL (8.4-10.2); Carbon Dioxide 20 mmol/L (22-29); Chloride 106 mmol/L (96-108); Cholesterol 265 mg/dL (<200); Estimated Glomerular Filt Rate > 60; Glucose Fasting 93 mg/dL (60-99); HDL Cholesterol 52 mg/dL (>40); LDL Cholesterol Calculated 195 mg/dL (<100); Sodium 136 mmol/L (135-145); Total Protein 8.2 g/dL (6.5-8.0); Triglycerides 90 mg/dL (<150)
== END 2023-04-08 08:58 | disposition home or self-care (01) ==
LOC: HO.LAB 08:57
PROVIDERS: PCP Internal Medicine; Visit Provider Internal Medicine
DX: E78.00 Pure hypercholesterolemia, unspecified (principal); I50.9 Heart failure, unspecified
CPT/HCPCS: 36415; 80053; 80061; 83880

== ENCOUNTER 2023-07-05 14:45 | Outpatient (AMB) | payer OTHER, SELFPAY ==
--- NOTE | 2023-07-05 15:43 | A.OFFPC_ITS ---
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 Required: No Accompanied by: Self / Same As Patient Allergies No Known Allergies [No Known Allergies*] Allergy (Verified 07/05/23 16:41) Medication List - Last Reconciled 07/07/23 by Chema Alexander MD apixaban (Eliquis) 5 mg PO BID 30 days atorvastatin 10 mg PO BEDTIME 30 days flecainide 100 mg PO Q12H folic acid 1 mg PO DAILY 90 days hydroxyzine pamoate 25 mg PO TID PRN metoprolol succinate ER 25 mg PO DAILY Tobacco use date assessed: 07/05/23 Dental Screening Dental Screen Date: 07/05/23 Did you have a dental visit in the last 12 months?: Yes Did you have a dental problem in the last 6 months where you did not have access to dental care?: No Was dental information given to patient?: Patient has dentist HPI 3 Month F/U HPI Details Patient comes in today for his follow up visit States that he feels okay He was seen by [facility] for follow up back in late May 2023 Patient supposedly underwent pulmonary vein isolation and a wide area circumferential radiofrequency ablation back in April 2023 He was subsequently taken off Digoxin and started on Fleicainide Cardiology is also apparently planning to have patient undergo a 14 day outpatient cardiac monitoring to document maintenance of his sinus rhythm (S/P c ardiac ablation) as they were not able to obtain any helpful information from patient - patient is a very poor historian and most of his answers related to his medical history and overall condition are quite vague and non-informative He will also be getting a repeat echocardiogram in a few months and has been referred for a sleep study as well He will see cardiology again in a couple of months for follow up Patient denies any headaches or dizziness Denies any chest pains, no SOB and states that he is really not able to tell if his heart rhythm changes or not - states that it all feels the same to him No nausea/vomiting, no abdominal pain No change in bowel habits noted He had some follow up labs done back in April 2023 and has not had any other labs done since COUNTS INCLUDE 234 BEDS AT THE [facility] Medical History Overweight (BMI 25.0-29.9) Thrombus of left atrial appendage Alcoholic cardiomyopathy Atrial fibrillation Pure hypercholesterolemia History of substance abuse Obesity (BMI 30-39.9) Left shoulder pain Insomnia Smoker Anxiety Surgical History No pertinent past surgical history Family History Father No problems noted. Mother No problems noted. Social History Housing: Condominium Alcohol intake: current Alcohol intake frequency: a few times a week Patient Tobacco Use Status: Former Tobacco user Quit Date: 05/20/23 Tobacco use type: Cigarette e-Cigarette/Vaping Use: Never Used Second Hand Smoke Exposure: Yes Current occupational status: employed Cognitive needs: No Hearing needs: No Vision needs: No Questionnaire PHQ-9 Over the last 2 weeks, how often have you been bothered by any of the following problems? 1. Little interest or pleasure in doing things: nearly every day 2. Feeling down, depressed, or hopeless: nearly every day 3. Trouble falling or staying asleep, or sleeping too much: nearly every day 4. Feeling tired or having little energy: nearly every day 5. Poor appetite or overeating: nearly every day 6. Feeling bad about yourself - or that you are a failure or have let yourself or your family down: nearly every day 7. Trouble concentrating on things, such as reading the newspaper or watching television: more than half the days 8. Moving or speaking so slowly that other people could have noticed. Or the opposite - being so fidgety or restless that you have been moving around a lot more than usual: nearly every day 9. Thoughts that you would be better off or of hurting yourself in some way: several days Total score: 24 Depression Screening Interpretation: Positive Depression Screening Follow-up: Existing condition and Community Mental Health Worker F/U Depression Screening Done: Yes 78765 - PHQ-9 Billing: Yes Source: Developed by Drs. Tenzin Noel, Jomar Brice and colleagues, with an educational yared from [employer]. Thrive Questionnaire Date Thrive assessed: 07/05/23 I am a: Patient What is your living situation today?: I do not have a steady places to live Within the past 12 months, did the food you bought not last and you didn't have the money to get more?: Sometimes True Within the past 12 months, did you worry whether your food would run out before you got money to buy more?: Often true Do you have trouble paying for medicines?: No Do you have trouble getting transportation to medical appointments?: No Do you have trouble paying your heating and electricity bill?: No Do you have trouble taking care of your child, family member or friend?: No Do you have trouble with day-to-day activities such as bathing, preparing meals, shopping, managing finances, etc.?: No Are you currently unemployed and looking for a job?: No Are you interested in more education?: No Currently or been in a relationship where the following occur: no concerns reported THRIVE Score: 3 AUDIT C Alcohol Use Questionnaire (AUDIT-C) 1. How often do you have a drink containing alcohol?: Never 3. How often do you have six or more drinks on one occasion?: Never Total Score: 0 Score Reviewed/Action Taken: Yes CALLIE-7 AMB Questionnaire CALLIE-7 Date CALLIE - 7 assessed: 07/05/23 Feeling nervous, anxious, or on edge: 3 = Nearly every day Not being able to stop or control worryin = Nearly every day Worrying too much about different things: 3 = Nearly every day Trouble relaxin = Nearly every day Being so restless that it is hard to sit still: 3 = Nearly every day Becoming easily annoyed or irritable: 3 = Nearly every day Feeling afraid as if something awful might happen: 3 = Nearly every day Total CALLIE-7 score (0-4 normal; 5-9 mild; 10-14 moderate; 15-21 severe): 21 Source: Developed by Drs. Tenzin Noel, Jomar Brice and colleagues, with an educational yared from [employer]. CALLIE-7 Assessment Billing CALLIE-7 Assessment Tool: CALLIE-7 Assessment 85777 Review of Systems Const Reports difficulty sleeping, Reports fatigue, Denies fever(s) and Denies headache(s) ENT Denies dysphagia, Denies dizziness, Denies otalgia, Denies headache(s), Denies neck pain and Denies sore throat Card Denies chest pain (but relates (+) chest pressure with activity at times), Denies palpitations and Reports dyspnea on exertion Resp Denies cough, Reports dyspnea on exertion and Denies wheezing GI Denies abdominal pain, Denies constipation, Denies dysphagia, Denies heartburn, Denies diarrhea, Denies nausea and Denies vomiting Denies dysuria, Denies nocturia and Denies urinary frequency Musc Reports back pain (on and off), Denies myalgias, Reports muscle weakness (overall) and Denies neck pain Neuro Denies dizziness and Denies headache(s) Psych Reports anxiety, Reports depression and Denies suicidal ideation Endo Reports fatigue and Denies palpitations Aller/Immun Denies wheezing Physical exam (Primary Care) Vital Signs: Last Vital Signs Pulse 85 07/05/23 15:51 BP 126/82 07/05/23 15:51 Pulse Ox 98 07/05/23 15:51 BMI result Body Mass Index 35.6 Tobacco/Smoking Status: Tobacco use Status Tobacco use date assessed 07/05/23 07/05/23 16:06 Patient Tobacco Use Status Former Tobacco user 07/05/23 16:06 Tobacco use type Cigarette 07/05/23 16:06 e-Cigarette/Vaping Use Never Used 07/05/23 15:44 PHQ-9: PHQ-9 Score PHQ-9: Total score 24 07/05/23 16:44 Depression Screening Interpretation: Positive Depression Screening Follow-up: Existing condition and Community Mental Health Worker F/U Thrive Assessment: Date of Thrive Assessment Date Thrive assessed 07/05/23 07/05/23 16:06 Currently or been in a relationship where the following occur: no concerns reported Const General: no acute distress and alert HENMT Ears: TM's normal bilaterally and EAC's normal Throat: Yes posterior oropharynx normal and Yes tonsils normal (no TP congestion) Neck Neck: Yes no lymphadenopathy and Yes supple Resp Auscultation: clear to auscultation bilaterally, no rales and no wheezes Cardio Rate: regular rate Rhythm: regular rhythm Heart sounds: no murmurs GI Palpation (GI): Soft to palpation and nontender Auscultation: normal bowel sounds Extrem General: No clubbing, No cyanosis and Yes pedal edema (1+ bilaterally) Results Reviewed Results Reviewed: Laboratory Tests 04/08/23 09:14 Sodium 136 Potassium 4.0 Creatinine 0.92 Estimated GFR > 60 Fasting Glucose 93 Calcium 9.9 AST 25 ALT 31 B-Natriuretic Peptide 67 Triglycerides 90 Cholesterol 265 H LDL Cholesterol, Calc 195 H HDL Cholesterol 52 Assessment and Plan Assessment & Plan (1) Alcoholic cardiomyopathy: Code(s): I42.6 - Alcoholic cardiomyopathy Plan: Echocardiogram done last year (2021) revealed (+) severe cardiomyopathy with EF of 15-25% States that he has been sober for a few months now and fortunately appears to have completely stopped drinking Nuclear stress testing in October 2022 revealed normal perfusion, no ischemia and EF of 62% HFrEF was likely tachycardia-mediated at the time Follow up with cardiology as scheduled (2) Atrial fibrillation: Code(s): I48.91 - Unspecified atrial fibrillation Qualifiers: Atrial fibrillation type: persistent (not longstanding) Qualified Code(s): I48.19 - Other persistent atrial fibrillation Plan: Patient currently appears to be in sinus rhythm He was originally scheduled for cardioversion but MONIQUE revealed the presence of a left atrial appendage thrombus so cardioversion was canceled He eventually underwent MONIQUE with cardioversion in June 2022 but failed cardioversion as he remained in sinus rhythm for only a short period of time and he was again in AF when he was seen by cardiology for follow up a month later (July 2022) He underwent pulmonary vein isolation and a wide area circumferential radiofrequency ablation back in April 2023 He was subsequently taken off Digoxin and started on Fleicainide He was seen by cardiology in late May 2023 and scheduled patient then for a 14 day ROCT to document maintenance of sinus rhythm, after which patient will be taken off Fleicainide - unclear if any of these have been completed yet as patient states he is not sure Continue Metoprolol 12.5 mg BID for rate control and Eliquis 5 mg BID for thromboembolism prophylaxis He was also referred for sleep study and will have repeat echocardiogram in a few months for follow up Follow up with cardiology as scheduled (3) Thrombus of left atrial appendage: Code(s): I51.3 - Intracardiac thrombosis, not elsewhere classified Plan: MONIQUE done early last year (2022) revealed the presence of a left atrial appendage thrombus, which led to the cancellation of his scheduled cardioversion Patient eventually underwent repeat MONIQUE and cardioversion in July 2022 but failed to maintain sinus rhythm; eventually underwent cardiac ablation Continue Eliquis 5 mg BID Follow-up with cardiology as scheduled (4) Pure hypercholesterolemia: Code(s): E78.00 - Pure hypercholesterolemia, unspecified Plan: Results of his labs done in April 2023 reviewed and discussed with patient - advised that his cholesterol numbers have increased further from previous and his LDL cholesterol was then at 195 mg/dl, up from 177 mg/dl a few months ago Reinforced low cholesterol diet We were not able to start him on statins previously due to his elevated LFTs and continued alcohol use but as his LFTs have now trended back to normal and patient has reportedly stopped drinking completely, will try starting him on Atorvastatin 10 mg QD Will have patient recheck his labs and fasting lipids in 3 months for follow up (5) Elevated LFTs: Code(s): R79.89 - Other specified abnormal findings of blood chemistry Plan: RESOLVED - LFTs back in April 2023 were normal Was likely due to his alcohol dependence/abuse previously Will continue to monitor his LFTs regularly (6) Anxiety: Code(s): F41.9 - Anxiety disorder, unspecified Plan: Continue Hydroxyzine 25 mg TID PRN for anxiety Will consider starting him on some maintenance Rx for his anxiety if his anxiety persists or gets worse (7) Smoker: Code(s): F17.200 - Nicotine dependence, unspecified, uncomplicated Plan: Counseled again to continue attempts at smokng cessation (8) Obesity (BMI 30-39.9): Code(s): E66.9 - Obesity, unspecified Plan: Reinforced diet/weight loss; exercise is unrealistic at this time given patient's current comorbidities but he is encouraged to try to get some exercise done as tolerated and that any activity that he can do regularly is better than no activity at all Plan Follow up in 3 months Orders: Orders Lipid Panel 3 Months E78.00 - Pure hypercholesterolemia, unspecified Comprehensive Deale. Panel Fast 3 Months E78.00 - Pure hypercholesterolemia, unspecified B Type Natriuretic Peptide 3 Months I50.9 - Heart failure, unspecified UA CC w/rflx Micro + Cult 3 Months R30.0 - Dysuria Complete Blood Count Auto Diff 3 Months D64.9 - Anemia, unspecified TSH reflex Free T4 3 Months E78.00 - Pure hypercholesterolemia, unspecified Vitamin D 25-OH Total 3 Months E55.9 - Vitamin D deficiency, unspecified Medications: New atorvastatin 10 mg PO BEDTIME 30 tabs 3RF 30 days Coding Level of Care Code Est Pt Level 4 (61597) Diagnoses Alcoholic cardiomyopathy I42.6 Persistent atrial fibrillation I48.19 Atrial fibrillation type: persistent (not longstanding) Thrombus of left atrial appendage I51.3 Pure hypercholesterolemia E78.00 Elevated LFTs R79.89 Anxiety F41.9 Smoker F17.200 Obesity (BMI 30-39.9) E66.9 Additional Codes CALLIE-7 Assessment Billing - CALLIE-7 Assessment Tool: CALLIE-7 Assessment 91520 ([id number])
[2023-07-05 15:51] VITALS: BP 126/82; PULSE 85; O2SAT 98; BMI 35.6
== END 2023-07-05 16:45 | disposition home or self-care (01) ==
PROVIDERS: PCP Internal Medicine; Visit Provider Internal Medicine
DX: I48.19 Other persistent atrial fibrillation (principal); I42.6 Alcoholic cardiomyopathy; E66.9 Obesity, unspecified; Z68.35 Body mass index [BMI] 35.0-35.9, adult; I51.3 Intracardiac thrombosis, not elsewhere classified; E78.00 Pure hypercholesterolemia, unspecified; F17.210 Nicotine dependence, cigarettes, uncomplicated; R79.89 Other specified abnormal findings of blood chemistry; F41.9 Anxiety disorder, unspecified
CPT/HCPCS: 99214

== ENCOUNTER 2023-09-04 09:27 | Emergency (ER) | payer OTHER, SELFPAY ==
--- NOTE | ~2023-09-04 | XR_ITS ---
EXAMINATION: XR SHOULDER, RIGHT CLINICAL INFORMATION: Pain following shoulder injury COMPARISON: None available. TECHNIQUE: AP external rotation, Grashey, scapular Y, and axillary views of the right shoulder. FINDINGS: There is no evidence of fracture or dislocation. There are changes of degenerative osteoarthritis of right glenohumeral joint with marginal spurring and subchondral cysts formation in the lower portion of the glenoid possibly lay prone injury. There are degenerative changes of acromioclavicular joint. Soft tissues are unremarkable. XR/XR shoulder RT min 2V IMPRESSION: Degenerative changes of right glenohumeral joint and acromioclavicular joint.
[2023-09-04 10:31] VITALS: BP 114/77; PULSE 76; RESP 19; TEMP 36.2; O2SAT 99; BMI 36.9
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
[2023-09-04] MEDS: Acetaminophen 325 MG TABLET 975 MG PO (13:40)
[2023-09-04 13:42] VITALS: BP 141/89; PULSE 74; RESP 20; TEMP 36.6; O2SAT 100
== END 2023-09-04 13:45 | disposition home or self-care (01) ==
PROVIDERS: Emergency Provider Emergency Medicine; PCP Internal Medicine
DX: Z04.1 Encounter for examination and observation following transport accident (principal); M25.511 Pain in right shoulder; I48.91 Unspecified atrial fibrillation; E78.00 Pure hypercholesterolemia, unspecified; Z87.891 Personal history of nicotine dependence; Z79.01 Long term (current) use of anticoagulants; Z79.02 Long term (current) use of antithrombotics/antiplatelets; Z79.899 Other long term (current) drug therapy
CPT/HCPCS: 73030; 99283

== ENCOUNTER 2023-09-18 13:14 | Outpatient (AMB) | payer OTHER, SELFPAY ==
[2023-09-18 13:15] VITALS: BMI 36.8
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
== END 2023-09-18 13:35 | disposition home or self-care (01) ==
PROVIDERS: PCP Internal Medicine; Visit Provider Orthopaedic Surgery
DX: M25.511 Pain in right shoulder (principal)
CPT/HCPCS: 99203

== ENCOUNTER → 2023-09-18 13:14 | Outpatient (BNVA) | payer OTHER, SELFPAY | PROVIDERS: PCP Internal Medicine; Visit Provider Orthopaedic Surgery | DX: M25.511 Pain in right shoulder (principal) | CPT/HCPCS: 99202 ==

== ENCOUNTER 2025-01-01 09:00 | Outpatient (AMB) | payer OTHER, SELFPAY ==
--- NOTE | 2025-01-01 09:07 | MHC.PC.OV ---
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 Pt was seen at [facility] on 12/22 for an evaluation and treatment of symptomatic Afib in the setting of medication non-compliance. Pt still does not take his medications because they make his drowsy. 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 Pt continues to have Chest pains and he refused to take his medications. [facility] Medical History (Updated 01/01/25 @ 09:59 by Mariaa Chinchilla NP) Non-compliance with treatment Overweight (BMI 25.0-29.9) Thrombus of left atrial appendage Alcoholic cardiomyopathy Atrial fibrillation Pure hypercholesterolemia History of substance abuse Obesity (BMI 30-39.9) Left shoulder pain Insomnia Smoker Anxiety Surgical History No pertinent past surgical history Family History (Updated 01/01/25 @ 09:07 by ITALIA Denney) Father No problems noted. Mother No problems noted. Social History Housing: Condominium Alcohol intake: current Alcohol intake frequency: a few times a week Patient Tobacco Use Status: Current everyday Tobacco user Tobacco use type: Cigarette Cigarette Packs Per Day: 1 Cigarettes Per Day: 20 e-Cigarette/Vaping Use: Never Used Second Hand Smoke Exposure: Yes service: No Current occupational status: unemployed Current occupation: Right hand dominant Cognitive needs: No Hearing needs: No Vision needs: No Questionnaire PHQ-9 Over the last 2 weeks, how often have you been bothered by any of the following problems? 1. Little interest or pleasure in doing things: several days 2. Feeling down, depressed, or hopeless: nearly every day 3. Trouble falling or staying asleep, or sleeping too much: nearly every day 4. Feeling tired or having little energy: nearly every day 5. Poor appetite or overeating: nearly every day 6. Feeling bad about yourself - or that you are a failure or have let yourself or your family down: nearly every day 7. Trouble concentrating on things, such as reading the newspaper or watching television: nearly every day 8. Moving or speaking so slowly that other people could have noticed. Or the opposite - being so fidgety or restless that you have been moving around a lot more than usual: nearly every day 9. Thoughts that you would be better off or of hurting yourself in some way: not at all Total score: 22 Depression Screening Interpretation: Positive Depression Screening Done: Yes Source: Developed by Drs. Tenzin Noel, Mary Kay, Jomar Esposito and colleagues, with an educational yared from [employer]. Thrive Questionnaire Date Thrive assessed: 01/01/25 I am a: Patient What is your living situation today?: I choose not to answer this question Within the past 12 months, did the food you bought not last and you didn't have the money to get more?: Often true Within the past 12 months, did you worry whether your food would run out before you got money to buy more?: Often true Do you have trouble paying for medicines?: No Do you have trouble getting transportation to medical appointments?: No Do you have trouble paying your heating and electricity bill?: Yes Do you have trouble taking care of your child, family member or friend?: I choose not to answer this question Do you have trouble with day-to-day activities such as bathing, preparing meals, shopping, managing finances, etc.?: No Are you currently unemployed and looking for a job?: Yes Are you interested in more education?: No Please select the resources that you would like help with: Job search/training Currently or been in a relationship where the following occur: I choose not to answer THRIVE Score: 3 AUDIT C Alcohol Use Questionnaire (AUDIT-C) 1. How often do you have a drink containing alcohol?: Never Total Score: 0 CALLIE-7 AMB Questionnaire CALLIE-7 Date CALLIE - 7 assessed: 01/01/25 Feeling nervous, anxious, or on edge: 3 = Nearly every day Not being able to stop or control worryin = Nearly every day Worrying too much about different things: 3 = Nearly every day Trouble relaxin = Nearly every day Being so restless that it is hard to sit still: 3 = Nearly every day Becoming easily annoyed or irritable: 3 = Nearly every day Feeling afraid as if something awful might happen: 3 = Nearly every day Total CALLIE-7 score (0-4 normal; 5-9 mild; 10-14 moderate; 15-21 severe): 21 Source: Developed by Drs. Tenzin Noel, Mary Kay, Jomar Esposito and colleagues, with an educational yared from [employer]. Review of Systems Const All systems reviewed & are unremarkable except as noted in HPI and below Physical exam (Primary Care) Vital Signs: Last Vital Signs Temp 96.9 F 01/01/25 09:09 Pulse 106 H 01/01/25 09:09 BP 110/68 01/01/25 09:09 Pulse Ox 99 01/01/25 09:09 Oxygen Delivery Method Room Air 01/01/25 09:09 BMI result Body Mass Index 34.1 Tobacco/Smoking Status: Tobacco use Status Tobacco use date assessed 01/01/25 01/01/25 09:14 Patient Tobacco Use Status Current everyday Tobacco 01/01/25 09:14 Tobacco use type Cigarette 01/01/25 09:08 e-Cigarette/Vaping Use Never Used 01/01/25 09:08 PHQ-9: PHQ-9 Score PHQ-9: Total score 22 01/01/25 09:08 Depression Screening Interpretation: Positive Thrive Assessment: Date of Thrive Assessment Date Thrive assessed 01/01/25 01/01/25 09:08 Currently or been in a relationship where the following occur: I choose not to answer Const General: no acute distress and lethargic Nutritional Appearance: overweight Orientation/consciousness: patient oriented x3 and lethargic Resp Effort & Inspection: normal respiratory effort Auscultation: clear to auscultation bilaterally Cardio Rhythm: abnormal rhythm irregularly irregular Neuro General: patient oriented x3, gait normal and moves all extremities Coding Level of Care Code Est Pt Level 4 (22973) Diagnoses Persistent atrial fibrillation I48.19 Atrial fibrillation type: persistent (not longstanding) Non-compliance with treatment Z91.199 Time Spent (min) 20 Assessment & Plan Assessment & Plan (1) Atrial fibrillation: Code(s): I48.91 - Unspecified atrial fibrillation Category: Medical Qualifiers: Atrial fibrillation type: persistent (not longstanding) Qualified Code(s): I48.19 - Other persistent atrial fibrillation Plan: I had a Long discussion the need for medication adherence and dangers of not taking them. Pt continues to decline to take his medications. Pt worried that he might be loosing his Job - his Employer feels he is a Liability at work. Pt wants PCP to feel out food [place] benefits. (2) Non-compliance with treatment: Code(s): Z91.199 - Patient's noncompliance with other medical treatment and regimen due to unspecified reason Category: Medical Plan: I had a Long discussion the need for medication adherence and dangers of not taking them. Pt continues to decline to take his medications. Pt worried that he might be loosing his Job - his Employer feels he is a Liability at work. Pt wants PCP to feel out food [place] benefits. Medications: Refilled cyclobenzaprine 10 mg PO BEDTIME PRN 7 tabs 0RF muscle spasm
[2025-01-01 09:09] VITALS: BP 110/68; PULSE 106; TEMP 36.1; O2SAT 99; BMI 34.1
--- OUTSIDE RECORDS SUMMARY | 2025-01-01 09:52 | XMS_ITS | Encounter Summary ---
Author Organization [employer] Address [address] [facility] [address] [place] [address] Care Team Providers Care Narcotics Detective Name Role Phone Unavailable Primary Care Provider Unavailabl e Encounter Details Date Type Department Care Team (Late st Contact Info) Description 05/02/2023 Abstract [facility] [address] [place] [address] Mariaa Linda [address] [place] [address] [id number] Social History Tobacco Use Types Packs/Day Years Used Date Smoking Tobacco: Every Day Cigarettes Smokeless Tobacco: Never Alcohol Use Standard Drinks/Week Comments Yes 0 (1 standard drink = 0.6 oz pur e alcohol) social Sex and Gender Information Value Date Recorded Sex Assigned at Male 02/04/2023 3:38 PM EDT Legal Sex Male 3:36 PM EDT Gender Identity Male 02/04/2023 3:38 PM EDT Sexual Orientation Straight 02/04/2023 3: 38 PM EDT documented as of this encounter Plan of Treatment Not on file documented as of this encounter Visit Diagnoses Not on filedocumented in this encounter
--- OUTSIDE RECORDS SUMMARY | 2025-01-01 09:52 | XMS_ITS | Clinical Summary ---
Author Organization [employer] Address [address] [facility] [address] [place] [address] Care Team Providers Care Rubber Ball Finisher Name Role Phone Unavailable Primary Care Provider Unavailabl e Allergies No known active allergies Medications Eliquis 5 MG tablet Take 5 mg by mouth 2 times daily. 02/11/2023 Active folic acid (Folvite) 1 MG tablet Take 1,000 mcg by mouth in the morning. 08/26/2022 Active hydrOXYzine pamoate (Vistaril) 25 MG capsule Take 25 mg by mouth. 01/30/2022 Active digoxin (Lanoxin) 125 MCG tablet Take 125 mcg by mouth in the morning. 01/12/2023 Active metoprolol tartrate (Lopressor) 25 MG tablet Take 12.5 mg by mouth. 01/30/2022 Active chlorhexidine (Peridex) 0.12 % solution PLEASE USE 15 ML OF SOLUTION BY MOUTH TWICE DAILY. SWISH FOR 30 SECONDS AND SPIT. 473 mL 07/29/2023 Active flecainide (Tambocor) 100 MG tablet Take 100 mg by mouth every 12 (twelve) hours. 07/27/2023 Active metoprolol succinate XL (Toprol-XL) 50 MG 24 hr tablet Take 50 mg by mouth in the morning. 07/28/2023 Active Active Problems No known active problems Immunizations Immunization Administration Dates Next Due Influenza injectable quadrivalent preservative f ree 01/26/2022 Moderna Covid-19 Vaccine 12+ 08/26/2020,07/30/19 21 Pfizer Covid-19 Vaccine 12+ 02/04/2023 Social History Tobacco Use Types Packs/Day Years Used Date Smoking Tobacco: Former Cigarettes Smokeless Tobacco: Never Tobacco Cessation:Counseling Given: Not Answered Alcohol Use Standard Drinks/Week Comments Yes 0 (1 standard drink = 0.6 oz pur e alcohol) social Sex and Gender Information Value Date Recorded Sex Assigned at Male 02/04/2023 3:38 PM EDT Legal Sex Male 3:36 PM EDT Gender Identity Male 02/04/2023 3:38 PM EDT Sexual Orientation Straight 02/04/2023 3: 38 PM EDT Last Filed Vital Signs Vital Sign Reading Time Taken Comments Blood Pressure 118/80 10/02/2023 9:39 AM EDT Pulse 70 07/04/2023 1:58 PM EST Temperature - - Respiratory Rate - - Oxygen Saturation - - Inhaled Oxygen Concentration - - Weight - - Height - - Body Mass Index - - Plan of Treatment Health Maintenance Due Date Last Done Comments Depression Screening 1982 HIV Screening 1982 Lipid Panel 1982 SDOH Screening 1982 Disability Screening 1982 Alcohol/Substance Use Screening 1994 Family Planning (PISQ) 1997 HPV Vaccines (1 - Male 3-dos e series) 1997 Hepatitis C Screening 2000 Hepatitis B Vaccines (1 of 3 - 19+ 3-dose series) 2001 DTaP/Tdap/Td Vaccines (1 - Tdap) 12/18/2015 12/17/2015 Dental Oral Exam 09/19/2023 03/20/2023 COVID-19 Vaccine (4 - 2023-2 5 season) 2024 02/04/2023, 08/26/2020, 07/29/2020 Dental X-Ray: Bitewings 03/21/2024 03/20/2023 Dental Prophylaxis 08/06/2024 02/05/2024 Influenza Vaccine (#1) 2025 01/26/2022 Tobacco Screening 02/04/2025 02/05/2024 Dental X-Ray: Full Mouth 03/21/2026 03/20/2023 Zoster Vaccines (1 of 2) 2032 RSV Patients and Patients Aged 60 years or older (1 - 1-dose 75+ series) 2057 HIB Vaccines Aged Out No longer eligi ble based on patient's age to complete this topic Hepatitis A Vaccines Aged Out No long er eligible based on patient's age to complete this topic IPV Vaccines Aged Out No longer eligi ble based on patient's age to complete this topic Meningococcal B Vaccine Aged Out No l onger eligible based on patient's age to complete this topic Meningococcal Vaccine Aged Out No srinath sonia eligible based on patient's age to complete this topic Pneumococcal Vaccine: Pediatrics (0 to 5 Years) and At-Risk Patients (6 to 49) Years Aged Out No longer eligible b ased on patient's age to complete this topic RSV under 20 months Aged Out No longe r eligible based on patient's age to complete this topic Rotavirus Vaccines Aged Out No longer eligible based on patient's age to complete this topic Procedures Procedure Name Priority Date/Time Associated Diagnosis Comments PROPHYLAXIS - ADULT Routine 02/05/2024 8 :00 AM EDT Dental plaque Dental calculus INTRAORAL - COMPLETE SERIES OF RADIOGRAPHIC IMAGES Routine 03/20/2023 8:00 AM EST COMPREHENSIVE ORAL EVALUATION - NEW OR ESTABLISHED PATIENT Routine 03/20/2023 8:00 AM EST from Last 3 Months or Most Recently Relevant to Health Maintenance Insurance [facility] ([place] [place] STAND ADULT
--- OUTSIDE RECORDS SUMMARY | 2025-01-01 09:52 | XMS_ITS | Encounter Summary ---
Author Organization [employer] [facility] Address [address] [facility] [address] [place] [address] Care Team Providers Care Hydraulic Governor Assembler Name Role Phone Unavailable Primary Care Provider Unavailabl e Encounter Details Date Type Department Care Team (Late st Contact Info) Description 05/10/2023 Abstract [facility] ADULT DENTAL [address] [place] [address] Julissa Patel BDS Social History Tobacco Use Types Packs/Day Years [...]
--- OUTSIDE RECORDS SUMMARY | 2025-01-01 09:52 | XMS_ITS | Encounter Summary ---
Author Organization [employer] [facility] Address [address] [place] [address] Care Team Providers Care Foundation Digger Name Role Phone Unavailable Primary Care Provider Unavailabl e Reason for Visit * Reason Comments Med Refill Encounter Details Date Type Department Care Team (Late st Contact Info) Description 07/28/2023 Refill [facility] ADULT DENTAL [address] [place] [address] Julissa Patel BDS Social History Tobacco Use Types Packs/Day Years Used Date Smoking Tobacco: Former Cigarettes Smokeless Tobacco: Never Alcohol Use Standard Drinks/Week Comments Yes 0 (1 standard drink = 0.6 oz pur e alcohol) social Sex and Gender Information Value Date Recorded Sex Assigned at Male 02/04/2023 3:38 PM EDT Legal Sex Male 3:36 PM EDT Gender Identity Male 02/04/2023 3:38 PM EDT Sexual Orientation Straight 02/04/2023 3: 38 PM EDT documented as of this encounter Miscellaneous Notes * Telephone Encounter - Julissa Patel BDS - 07/29/2023 4:55 PM EDT Approving, but needs appt for additional refills. documented in this encounter Plan of Treatment Not on file documented as of this encounter Visit Diagnoses Not on filedocumented in this encounter
== END 2025-01-01 09:29 | disposition home or self-care (01) ==
LOC: HO.HMCH 09:01
PROVIDERS: PCP Internal Medicine; Visit Provider Nurse Practitioner Family
DX: I48.19 Other persistent atrial fibrillation (principal); Z91.199 Patient's noncompliance with other medical treatment and regimen due to unspecified reason

== ENCOUNTER → 2025-01-01 09:00 | Outpatient (BNVA) | payer OTHER, SELFPAY | PROVIDERS: PCP Internal Medicine; Visit Provider Nurse Practitioner Family | DX: E66.3 Overweight (principal); I48.19 Other persistent atrial fibrillation; Z91.199 Patient's noncompliance with other medical treatment and regimen due to unspecified reason; Z68.34 Body mass index [BMI] 34.0-34.9, adult | CPT/HCPCS: 99212 ==

== ENCOUNTER 2025-02-16 08:40 | Outpatient (AMB) | payer OTHER, SELFPAY ==
--- NOTE | 2025-02-16 09:03 | MHC.PC.OV ---
Vital Signs 02/16/25 09:05 Height 5 ft 6 in Weight 206 lb 6 oz BMI 33.3 BP 130/74 Blood Pressure Location Lt brachial Position Sitting Pulse 102 H Pulse Source Pulse Oximeter Temp 97.1 F Temp Source Temporal Artery Scan Pulse Oximetry (%) 98 Oxygen Delivery Method Room Air Intake Visit Reasons: 3 month f/u Intake Note: Patient is here to follow up on Afib, Hypercholesterolemia, Insomnia [employer] Required: No Service Aide: Not Required per policy Accompanied by: Self / Same As Patient Allergies No Known Allergies (No Known Allergies*) Allergy (Verified 02/16/25 09:33) Medication List - Last Reconciled 02/16/25 by CHEYENNE Garcia apixaban (Eliquis) 5 mg PO BID 90 days atorvastatin 10 mg PO BEDTIME 90 days cyclobenzaprine 10 mg PO BEDTIME PRN flecainide 100 mg PO Q12H folic acid 1 mg PO DAILY 90 days hydroxyzine pamoate 25 mg PO BID PRN metoprolol succinate ER 25 mg PO DAILY nicotine apply 1-21 mg NICOTINE PATCH daily for 28 days; follow with 1-14 mg PATCH daily for 14 days, then 1-7mg PATCH daily for 14 days transdermal Tobacco use date assessed: 02/16/25 Dental Screening Dental Screen Date: 01/01/25 HPI 3 month f/u HPI Details The patient is a 44-year-old male presenting with difficulty in taking deep breaths and concerns related to atrial fibrillation. The patient reports a history of atrial fibrillation, which was diagnosed when he weighed 235 pounds, although he has since reduced his weight to 205 pounds. He experiences occasional erratic heartbeats, which he attributes to the atrial fibrillation, and notes that his heart condition was initially thought to be related to his weight. The patient describes significant difficulty in taking deep breaths, requiring intense concentration to achieve full lung expansion. He has been engaging in yoga and meditation to improve his breathing but continues to experience shortness of breath, particularly when lying down or during physical exertion. The patient has a history of alcohol use but reports abstaining for the past two years following a health scare related to his heart condition. He was informed that alcohol may have affected his vitamin absorption, leading to a recommendation for folic acid supplementation. The patient has been inconsistent with medication adherence, particularly with Eliquis and metoprolol, which are prescribed for his atrial fibrillation. He acknowledges the importance of these medications in managing his condition and has been advised to maintain regular intake to prevent complications. The patient is also prescribed flecainide 100mg q12 hours. Reports that he has not been taking this medication. Explained the importance of taking this medication and resent script to the pharmacy. Socially, the patient is attempting to quit smoking and has been using nicotine lozenges, although he expresses a desire to switch to nicotine patches to eliminate oral fixation. He has not smoked cigarettes for about a month and a half, indicating progress in his cessation efforts. The patient needs to be referred to cardiology back-reports that he had few missed appointments and have not been able to connect with them since. [facility] Medical History (Updated 02/16/25 @ 13:10 by CHEYENNE Garcia) Non-compliance with treatment Overweight (BMI 25.0-29.9) Thrombus of left atrial appendage Alcoholic cardiomyopathy Atrial fibrillation Pure hypercholesterolemia History of substance abuse Obesity (BMI 30-39.9) Left shoulder pain Insomnia Smoker Anxiety Surgical History No pertinent past surgical history Family History Father No problems noted. Mother No problems noted. Social History Housing: Condominium Alcohol intake: current Alcohol intake frequency: a few times a week Patient Tobacco Use Status: Former Tobacco user Tobacco use type: Cigarette Cigarette Packs Per Day: 1 Cigarettes Per Day: 20 e-Cigarette/Vaping Use: Never Used Second Hand Smoke Exposure: Yes service: No Current occupational status: unemployed Current occupation: Right hand dominant Cognitive needs: No Hearing needs: No Vision needs: No Questionnaire Thrive Questionnaire Date Thrive assessed: 01/01/25 I am a: Patient What is your living situation today?: I choose not to answer this question Within the past 12 months, did the food you bought not last and you didn't have the money to get more?: Often true Within the past 12 months, did you worry whether your food would run out before you got money to buy more?: Often true Do you have trouble paying for medicines?: No Do you have trouble getting transportation to medical appointments?: No Do you have trouble paying your heating and electricity bill?: Yes Do you have trouble taking care of your child, family member or friend?: I choose not to answer this question Do you have trouble with day-to-day activities such as bathing, preparing meals, shopping, managing finances, etc.?: No Are you currently unemployed and looking for a job?: Yes Are you interested in more education?: No Please select the resources that you would like help with: Job search/training Currently or been in a relationship where the following occur: I choose not to answer THRIVE Score: 3 CALLIE-7 AMB Questionnaire CALLIE-7 Date CALLIE - 7 assessed: 01/01/25 Source: Developed by Drs. Tenzin Noel, Mary Kay, Jomar Esposito and colleagues, with an educational yared from [employer]. Review of Systems Const Denies body aches, Denies chills, Denies fever(s), Denies headache(s) and Denies poor appetite Eyes Reports no additional complaints ENT Denies dysphagia, Denies dizziness, Denies headache(s) and Denies odynophagia Card Denies chest pain, Denies syncope, Denies edema, Denies irregular heart rhythm, Denies lightheadedness, Denies dyspnea, Reports dyspnea on exertion and Reports orthopnea (feeling like he is unable to take a deep breath without effort) Resp Denies cough, Denies dyspnea and Reports dyspnea on exertion GI Denies abdominal pain, Denies constipation, Denies dysphagia, Denies diarrhea, Denies nausea, Denies odynophagia and Denies vomiting Reports no additional complaints Musc Reports no additional complaints and Denies abnormal gait Skin/Breast Reports system reviewed and no additional complaints, except as documented Neuro Denies abnormal gait, Denies dizziness, Denies syncope and Denies headache(s) Psych Reports no additional complaints Physical exam (Primary Care) Vital Signs: Last Vital Signs Temp 97.1 F 02/16/25 09:05 Pulse 102 H 02/16/25 09:05 BP 130/74 02/16/25 09:05 Pulse Ox 98 02/16/25 09:05 Oxygen Delivery Method Room Air 02/16/25 09:05 BMI result Body Mass Index 33.3 Tobacco/Smoking Status: Tobacco use Status Tobacco use date assessed 02/16/25 02/16/25 09:12 Patient Tobacco Use Status Former Tobacco user 02/16/25 09:12 Tobacco use type Cigarette 02/16/25 09:12 e-Cigarette/Vaping Use Never Used 02/16/25 09:12 Thrive Assessment: Date of Thrive Assessment Date Thrive assessed 01/01/25 02/16/25 09:12 Currently or been in a relationship where the following occur: I choose not to answer Const General: cooperative, healthy appearing, comfortable and no acute distress Orientation/consciousness: patient oriented x3 HENMT Head: Yes normocephalic Ears: hearing grossly normal bilaterally General nose exam: Normal external nose present Eyes General: appearance normal, both eyes and all related structures Conjunctivae: conjunctivae normal Pupils: Equal, round and reactive pupils present Neck Neck: Yes full ROM and Yes no lymphadenopathy Resp Effort & Inspection: normal respiratory effort Auscultation: clear to auscultation bilaterally, no crackles, no rales, no rhonchi and no wheezes Cardio Rate: tachycardic Rhythm: abnormal rhythm irregularly irregular Heart sounds: S1 normal heart sound present and S2 normal heart sound present GI Palpation (GI): Soft to palpation, nontender and No hepatosplenomegaly present General: Yes no CVA tenderness Back/Spine/Pelvis Back: no CVA tenderness Skin General skin exam: no rashes or lesions noted Neuro General: patient oriented x3 Cranial nerves: Yes Equal, round and reactive pupils present Gait exam (Neuro): Normal gait present Extrem General: Yes normal to inspection, Yes full ROM and No edema Right upper extremity: full ROM and edema Left upper extremity: full ROM Right lower extremity: full ROM; no edema Left lower extremity: full ROM; no edema Psych Affect: normal affect Attitude: cooperative Insight: Good insight present (Psych) Judgement: Good judgement present (Psych) Coding Level of Care Code Est Pt Level 4 (70492) Diagnoses Alcoholic cardiomyopathy I42.6 Persistent atrial fibrillation I48.19 Atrial fibrillation type: persistent (not longstanding) Pure hypercholesterolemia E78.00 Obesity (BMI 30-39.9) E66.9 Elevated LFTs R79.89 Screening for STD (sexually transmitted disease) Z11.3 Smoker F17.200 Insomnia, unspecified type G47.00 Insomnia type: unspecified History of substance abuse F19.11 Other depression F32.89 Depression Type: other depression Anxiety F41.9 Shortness of breath on exertion R06.02 Time Spent (min) 39 Assessment & Plan Assessment & Plan (1) Alcoholic cardiomyopathy: Code(s): I42.6 - Alcoholic cardiomyopathy Category: Medical Plan: Echocardiogram in 2021 showed severe cardiomyopathy with the EF of 15-25%. After few months of sobriety a nuclear stress test in October of 2022 showed normal perfusion, no ischemia and an EF of 62%. The patient is complaining of shortness of breath with exertion and was seen in [facility] ER for this on 12/22/2024. Chest x-ray benign. BNP was mildly elevated at 297 pg/ml. Suspected that this was due to the patient lack of compliance with taking his medications. The patient reports that he is currently only taking apixaban and metoprolol at times. (2) Atrial fibrillation: Code(s): I48.91 - Unspecified atrial fibrillation Category: Medical Qualifiers: Atrial fibrillation type: persistent (not longstanding) Qualified Code(s): I48.19 - Other persistent atrial fibrillation Plan: The patient has an irregular rhythm upon auscultation. The patient admits to taking apixaban 5 mg b.i.d. and metoprolol succinate 25 mg daily at times. The patient has flecainide 100 mg q.12 hours ordered and he has not been taking this medication. Discussed with the patient that he is currently in AFib and most likely the reason for short of breath with the exertion. Flecainide 100 mg q.12 hours and atorvastatin 10 mg at bedtime re-sent to the pharmacy for the patient to resume. Discuss Cardiology follow up with the patient. Per patient, he had missed multiple appointments and has been having difficulty getting someone on the phone to re-scheduled an appointment. Encouraged the patient to call the cardiology office again. A new referral was also placed to [facility]iology in case the patient does not follow up. Per old cardiology note the patient supposed to have a follow up echocardiogram. If the patient is unable to get an appointment with Cardiology. We will order the echocardiogram to further evaluate the patient condition. (3) Pure hypercholesterolemia: Code(s): E78.00 - Pure hypercholesterolemia, unspecified Category: Medical Plan: The patient has not had labs completed since 2022. Continue atorvastatin 10 mg at bedtime. Lipid panel ordered for the patient to complete to further evaluate (4) Obesity (BMI 30-39.9): Code(s): E66.9 - Obesity, unspecified Category: Medical Plan: Encouraged low-cholesterol diet and activity as tolerated to aid in weight loss (5) Elevated LFTs: Code(s): R79.89 - Other specified abnormal findings of blood chemistry Category: Medical Plan: Similarly, no labs completed since 2022. CMP ordered to further evaluate. The patient denies drinking alcohol. Limit drugs containing Tylenol or acetaminophen, fatty foods. (6) Screening for STD (sexually transmitted disease): Code(s): Z11.3 - Encounter for screening for infections with a predominantly sexual mode of transmission Category: Medical Plan: STDs test ordered per patient request (7) Smoker: Code(s): F17.200 - Nicotine dependence, unspecified, uncomplicated Category: Social Hx Plan: Encouraged continued smoking cessation. Reports that he started smoking again and has been trying to quit. Nicotine patches ordered for the patient (8) Insomnia: Code(s): G47.00 - Insomnia, unspecified Category: Medical Qualifiers: Insomnia type: unspecified Qualified Code(s): G47.00 - Insomnia, unspecified Plan: Sleep hygiene: Exercise regularly, but not within 4 hour of bedtime. Limit fluid intake and avoid large meals in the evening hours. Limit overall caffeine, tobacco, and alcohol intake; no night cap. Maintain a regular sleep-wake cycle without naps in the daytime. Lie down to sleep only when feeling sleepy; leave the bed if unable to fall asleep within 20 minutes; stay in bed for only the hours actually sleeping(but not less than 5 hour in 24 hours). (9) History of substance abuse: Code(s): F19.11 - Other psychoactive substance abuse, in remission Category: Medical Plan: Encouraged continuing sobriety (10) Depression: Code(s): F32.A - Depression, unspecified Category: Medical Qualifiers: Depression Type: other depression Qualified Code(s): F32.89 - Other specified depressive episodes Plan: Encouraged CBT He is not interested at this time Denies SI/HI (11) Anxiety: Code(s): F41.9 - Anxiety disorder, unspecified Category: Medical Plan: Patient has hydroxyzine 25 mg b.i.d. p.r.n. ordered reports that he has not been taking this. He is not interesting in CBT at this time. (12) Shortness of breath on exertion: Code(s): R06.02 - Shortness of breath Category: Medical Plan: The shortness of breath is suspected to be related to the patient's cardiac condition rather than a pulmonary issue, as the lungs are clear on examination. Chest xray clear without any abnormality in [facility] ED. The patient is encouraged to adhere to prescribed medications and follow up with cardiology to address the underlying cardiac issues. Plan PATIENT TO FOLLOW UP IN 3 MONTHS BUT ENCOURAGED TO GET LABS DONE SOON POSSIBLE Orders: Orders Complete Blood Count Auto Diff Today E66.9 - Obesity, unspecified, E78.00 - Pure hypercholesterolemia, unspecified, F17.200 - Nicotine dependence, unspecified, uncomplicated, F19.11 - Other psychoactive substance abuse, in remission, F32.89 - Other specified depressive episodes, F41.9 - Anxiety disorder, unspecified, G47.00 - Insomnia, unspecified, I42.6 - Alcoholic cardiomyopathy, I48.19 - Other persistent atrial fibrillation, N17.9 - Acute kidney failure, unspecified, R79.89 - Other specified abnormal findings of blood chemistry, Z11.3 - Encounter for screening for infections with a predominantly sexual mode of transmission, Z91.199 - Patient's noncompliance with other medical treatment and regimen due to unspecified reason UA CC w/rflx Micro + Cult Today E66.9 - Obesity, unspecified, E78.00 - Pure hypercholesterolemia, unspecified, F17.200 - Nicotine dependence, unspecified, uncomplicated, F19.11 - Other psychoactive substance abuse, in remission, F32.89 - Other specified depressive episodes, F41.9 - Anxiety disorder, unspecified, G47.00 - Insomnia, unspecified, I42.6 - Alcoholic cardiomyopathy, I48.19 - Other persistent atrial fibrillation, N17.9 - Acute kidney failure, unspecified, R79.89 - Other specified abnormal findings of blood chemistry, Z11.3 - Encounter for screening for infections with a predominantly sexual mode of transmission, Z91.199 - Patient's noncompliance with other medical treatment and regimen due to unspecified reason TSH reflex Free T4 Today E66.9 - Obesity, unspecified, E78.00 - Pure hypercholesterolemia, unspecified, F17.200 - Nicotine dependence, unspecified, uncomplicated, F19.11 - Other psychoactive substance abuse, in remission, F32.89 - Other specified depressive episodes, F41.9 - Anxiety disorder, unspecified, G47.00 - Insomnia, unspecified, I42.6 - Alcoholic cardiomyopathy, I48.19 - Other persistent atrial fibrillation, N17.9 - Acute kidney failure, unspecified, R79.89 - Other specified abnormal findings of blood chemistry, Z11.3 - Encounter for screening for infections with a predominantly sexual mode of transmission, Z91.199 - Patient's noncompliance with other medical treatment and regimen due to unspecified reason HIV Ab/Ag Today E66.9 - Obesity, unspecified, E78.00 - Pure hypercholesterolemia, unspecified, F17.200 - Nicotine dependence, unspecified, uncomplicated, F19.11 - Other psychoactive substance abuse, in remission, F32.89 - Other specified depressive episodes, F41.9 - Anxiety disorder, unspecified, G47.00 - Insomnia, unspecified, I42.6 - Alcoholic cardiomyopathy, I48.19 - Other persistent atrial fibrillation, N17.9 - Acute kidney failure, unspecified, R79.89 - Other specified abnormal findings of blood chemistry, Z11.3 - Encounter for screening for infections with a predominantly sexual mode of transmission, Z91.199 - Patient's noncompliance with other medical treatment and regimen due to unspecified reason CT NG by PCR Urine Today E66.9 - Obesity, unspecified, E78.00 - Pure hypercholesterolemia, unspecified, F17.200 - Nicotine dependence, unspecified, uncomplicated, F19.11 - Other psychoactive substance abuse, in remission, F32.89 - Other specified depressive episodes, F41.9 - Anxiety disorder, unspecified, G47.00 - Insomnia, unspecified, I42.6 - Alcoholic cardiomyopathy, I48.19 - Other persistent atrial fibrillation, N17.9 - Acute kidney failure, unspecified, R79.89 - Other specified abnormal findings of blood chemistry, Z11.3 - Encounter for screening for infections with a predominantly sexual mode of transmission, Z91.199 - Patient's noncompliance with other medical treatment and regimen due to unspecified reason Syphilis Screen Today E66.9 - Obesity, unspecified, E78.00 - Pure hypercholesterolemia, unspecified, F17.200 - Nicotine dependence, unspecified, uncomplicated, F19.11 - Other psychoactive substance abuse, in remission, F32.89 - Other specified depressive episodes, F41.9 - Anxiety disorder, unspecified, G47.00 - Insomnia, unspecified, I42.6 - Alcoholic cardiomyopathy, I48.19 - Other persistent atrial fibrillation, N17.9 - Acute kidney failure, unspecified, R79.89 - Other specified abnormal findings of blood chemistry, Z11.3 - Encounter for screening for infections with a predominantly sexual mode of transmission, Z91.199 - Patient's noncompliance with other medical treatment and regimen due to unspecified reason Comprehensive [place]. Panel Fast Today E66.9 - Obesity, unspecified, E78.00 - Pure hypercholesterolemia, unspecified, F17.200 - Nicotine dependence, unspecified, uncomplicated, F19.11 - Other psychoactive substance abuse, in remission, F32.89 - Other specified depressive episodes, F41.9 - Anxiety disorder, unspecified, G47.00 - Insomnia, unspecified, I42.6 - Alcoholic cardiomyopathy, I48.19 - Other persistent atrial fibrillation, N17.9 - Acute kidney failure, unspecified, R79.89 - Other specified abnormal findings of blood chemistry, Z11.3 - Encounter for screening for infections with a predominantly sexual mode of transmission, Z91.199 - Patient's noncompliance with other medical treatment and regimen due to unspecified reason Lipid Panel Today E66.9 - Obesity, unspecified, E78.00 - Pure hypercholesterolemia, unspecified, F17.200 - Nicotine dependence, unspecified, uncomplicated, F19.11 - Other psychoactive substance abuse, in remission, F32.89 - Other specified depressive episodes, F41.9 - Anxiety disorder, unspecified, G47.00 - Insomnia, unspecified, I42.6 - Alcoholic cardiomyopathy, I48.19 - Other persistent atrial fibrillation, N17.9 - Acute kidney failure, unspecified, R79.89 - Other specified abnormal findings of blood chemistry, Z11.3 - Encounter for screening for infections with a predominantly sexual mode of transmission, Z91.199 - Patient's noncompliance with other medical treatment and regimen due to unspecified reason Vitamin D 25-OH Total Today E66.9 - Obesity, unspecified, E78.00 - Pure hypercholesterolemia, unspecified, F17.200 - Nicotine dependence, unspecified, uncomplicated, F19.11 - Other psychoactive substance abuse, in remission, F32.89 - Other specified depressive episodes, F41.9 - Anxiety disorder, unspecified, G47.00 - Insomnia, unspecified, I42.6 - Alcoholic cardiomyopathy, I48.19 - Other persistent atrial fibrillation, N17.9 - Acute kidney failure, unspecified, R79.89 - Other specified abnormal findings of blood chemistry, Z11.3 - Encounter for screening for infections with a predominantly sexual mode of transmission, Z91.199 - Patient's noncompliance with other medical treatment and regimen due to unspecified reason NT Pro B Type Natriuretic Pept Today E66.9 - Obesity, unspecified, E78.00 - Pure hypercholesterolemia, unspecified, F17.200 - Nicotine dependence, unspecified, uncomplicated, F19.11 - Other psychoactive substance abuse, in remission, F32.89 - Other specified depressive episodes, F41.9 - Anxiety disorder, unspecified, G47.00 - Insomnia, unspecified, I42.6 - Alcoholic cardiomyopathy, I48.19 - Other persistent atrial fibrillation, N17.9 - Acute kidney failure, unspecified, R79.89 - Other specified abnormal findings of blood chemistry, Z11.3 - Encounter for screening for infections with a predominantly sexual mode of transmission, Z91.199 - Patient's noncompliance with other medical treatment and regimen due to unspecified reason Vitamin B12 and Folate Today E66.9 - Obesity, unspecified, E78.00 - Pure hypercholesterolemia, unspecified, F17.200 - Nicotine dependence, unspecified, uncomplicated, F19.11 - Other psychoactive substance abuse, in remission, F32.89 - Other specified depressive episodes, F41.9 - Anxiety disorder, unspecified, G47.00 - Insomnia, unspecified, I42.6 - Alcoholic cardiomyopathy, I48.19 - Other persistent atrial fibrillation, N17.9 - Acute kidney failure, unspecified, R79.89 - Other specified abnormal findings of blood chemistry, Z11.3 - Encounter for screening for infections with a predominantly sexual mode of transmission, Z91.199 - Patient's noncompliance with other medical treatment and regimen due to unspecified reason Referrals Cardiology Referral I42.6 - Alcoholic cardiomyopathy, I48.19 - Other persistent atrial fibrillation Medications: New flecainide 100 mg PO Q12H 60 tabs 3RF metoprolol succinate ER 25 mg PO DAILY 90 tabs 3RF nicotine apply 1-21 mg NICOTINE PATCH daily for 28 days; follow with 1-14 mg PATCH daily for 14 days, then 1-7mg PATCH daily for 14 days transdermal 56 patches 0RF Changed From apixaban (Eliquis) 5 mg PO BID 60 tabs 3RF 30 days To apixaban (Eliquis) 5 mg PO BID 180 tabs 3RF 90 days From atorvastatin 10 mg PO BEDTIME 30 tabs 3RF 30 days To atorvastatin 10 mg PO BEDTIME 90 tabs 3RF 90 days Refilled cyclobenzaprine 10 mg PO BEDTIME PRN 7 tabs 0RF muscle spasm folic acid 1 mg PO DAILY 90 tabs 3RF 90 days
[2025-02-16 09:05] VITALS: BP 130/74; PULSE 102; TEMP 36.2; O2SAT 98; BMI 33.3
--- OUTSIDE RECORDS SUMMARY | 2025-02-16 09:06 | XMS_ITS | Clinical Summary ---
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
--- OUTSIDE RECORDS SUMMARY | 2025-02-16 09:06 | XMS_ITS | Encounter Summary ---
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
--- OUTSIDE RECORDS SUMMARY | 2025-02-16 09:06 | XMS_ITS | Encounter Summary ---
Author Organization [employer] Address [address] [facility] [facility] [address] [facility] [address] [place] [address] Care Team Providers Care Drum Attendant Name Role Phone Unavailable Primary Care Provider Unavailabl e Encounter Details Date Type Department Care Team (Late st Contact Info) Description 05/02/2023 Abstract [facility] ADULT DENTAL [address] [place] [address] Mariaa Linda [address] [place] [address] [phone] Social History Tobacco Use Types Packs/Day Years [...]
--- OUTSIDE RECORDS SUMMARY | 2025-02-16 09:06 | XMS_ITS | Encounter Summary ---
Author Organization [employer] [facility] Address [address] [place] [address] Care Team Providers Care Real Estate Clerk Name Role Phone Unavailable Primary Care Provider Unavailabl e Encounter Details Date Type Department Care Team (Late st Contact Info) Description 05/10/2023 Abstract [facility] ADULT DENTAL [address] [place] [address] Julissa Patel BDS Social History Tobacco Use [...]
== END 2025-02-16 10:11 | disposition home or self-care (01) ==
LOC: HO.HMCH 08:41
PROVIDERS: PCP Internal Medicine
DX: I48.19 Other persistent atrial fibrillation (principal); I42.6 Alcoholic cardiomyopathy; F19.11 Other psychoactive substance abuse, in remission; E66.9 Obesity, unspecified; Z68.33 Body mass index [BMI] 33.0-33.9, adult; E78.00 Pure hypercholesterolemia, unspecified; R79.89 Other specified abnormal findings of blood chemistry; F17.200 Nicotine dependence, unspecified, uncomplicated; G47.00 Insomnia, unspecified; F32.89 Other specified depressive episodes; F41.9 Anxiety disorder, unspecified; R06.02 Shortness of breath

== ENCOUNTER → 2025-02-16 08:40 | Outpatient (BNVA) | payer OTHER, SELFPAY | PROVIDERS: PCP Internal Medicine | DX: R06.02 Shortness of breath (principal); I42.6 Alcoholic cardiomyopathy; I48.19 Other persistent atrial fibrillation; E78.00 Pure hypercholesterolemia, unspecified; E66.9 Obesity, unspecified; R79.89 Other specified abnormal findings of blood chemistry; G47.00 Insomnia, unspecified; F32.89 Other specified depressive episodes; F41.9 Anxiety disorder, unspecified; F17.210 Nicotine dependence, cigarettes, uncomplicated | CPT/HCPCS: 99212 ==